=== PATIENT | male | born 1975 | race Two or more races ===

== ENCOUNTER 2020-05-12 06:03 | Outpatient (REF) | payer OTHER, SELFPAY ==
[2020-05-12 07:22] LABS: Alanine Aminotransferase 18 U/L (0-40); Albumin Level 4.4 g/dL (3.5-5.0); Alkaline Phosphatase 129 U/L (39-117); Anion Gap 10 (12-20); Aspartate Amino Transferase 19 U/L (5-37); Bilirubin Direct < 0.2 mg/dL (0.0-0.5); Bilirubin Total 0.5 mg/dL (0.0-1.0); Carbon Dioxide 36 mmol/L (22-29); Chloride 99 mmol/L (96-108); Potassium 4.3 mmol/l (3.3-5.1); Sodium 141 mmol/L (135-145); Total Protein 7.7 g/dL (6.5-8.0)
== END 2020-05-12 06:04 | disposition home or self-care (01) ==
LOC: HO.LAB 06:03
PROVIDERS: PCP Family Medicine; Visit Provider Nurse Practitioner Psychiatric/Mental Health
DX: Z79.899 Other long term (current) drug therapy (principal)
CPT/HCPCS: 80051; 80076

== ENCOUNTER → 2020-05-18 08:57 | Outpatient (BNVA) | payer OTHER, SELFPAY | PROVIDERS: Visit Provider Internal Medicine | DX: F11.99 Opioid use, unspecified with unspecified opioid-induced disorder (principal) | CPT/HCPCS: 80305; 99211 ==

== ENCOUNTER → 2020-07-27 09:23 | Outpatient (BNVA) | payer OTHER, SELFPAY | PROVIDERS: PCP Family Medicine; Visit Provider Internal Medicine ==

== ENCOUNTER 2020-08-17 13:00 | Outpatient (RCR) | payer OTHER, SELFPAY ==
--- NOTE | 2020-04-14 09:04 | P.PNPSP_ITS ---
Subjective Subjective Date of Service: 04/14/20 Reason For Visit: Med management follow up Interim History: Pt presents for follow up. Visit completed via telephone. He reports mother is doing better, and more active--still some STM impairment. he feels increase in Trileptal has improved his mood some, in particular the irritability he was experiencing. Still experiencing severe panic and anxiety anytime he has to leave his home. Medication Compliance: Yes Side effects from medications: No Mental Status Exam Mental Status Exam Level of Consciousness: Awake Patient Behavior: Appropriate Mood Description: Anxious Affect Description: Anxious Patient Cognition Impaired: Yes Speech Pattern: Clear Thought Process: Intact and Rumination Thought Content: positive for Goal Oriented Depressive Symptoms: Increased Anxiety, Difficulty Sleeping and Crying Spells Judgement: Good Assessment & Plan Assessment & Plan (1) Major depressive disorder, recurrent episode, severe: Qualifiers: Psychotic features: without psychotic features Qualified Code(s): F33.2 - Major depressive disorder, recurrent severe without psychotic features Status: Acute Code(s): F33.2 - Major depressive disorder, recurrent severe without psychotic features (2) Post-traumatic stress disorder, chronic: Status: Acute Code(s): F43.12 - Post-traumatic stress disorder, chronic (3) Agoraphobia with panic disorder: Status: Acute Code(s): F40.01 - Agoraphobia with panic disorder Patient educated on: diagnosis and medication risk/benefits Greater than 50% of the session was spent on counseling and/or coordination of care * No change to current regimen * Labs ordered * F/U 1 month, will focus on panic prior to leaving his home Discharge Plan Discharge Attending provider: Lou Barnes Medications: Continued oxcarbazepine 600 mg tablet 1 tab PO BID RF: 0 quetiapine 100 mg tablet 2 tab PO BEDTIME RF: 0 sertraline 100 mg tablet 1.5 tab PO DAILY RF: 0 buprenorphine-naloxone [Suboxone] 8-2 mg film 1 strip sublingual BID RF: 0 Changed clonazepam 0.5 mg tablet See Rx Instructions .ROUTE .COMPLEX Qty: 0 RF: 0 Review of Systems Const Reports difficulty sleeping and Denies malaise Psych Reports anxiety, Reports hopelessness and Reports panic attacks
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
--- NOTE | 2020-06-03 15:48 | P.PNPSO_ITS ---
Subjective Subjective Date of Service: 06/03/20 Reason For Visit: Med management follow up Interim History: Patient reports mood has been stable and sleep has improved. He reports that anxiety associated with having to leave his home is out of control . He reports that he physically shakes while at appointments and he is anxious to leave--providers have taken note of this and been accommodating to patient by ensuring that wait is minimal and appointments are not longer than they need to be. Medication Compliance: Yes Side effects from medications: No Review of Systems Psychiatric: Reports abnormal sleep pattern, Reports anxiety, Reports difficulty concentrating (slightly improving ) and Reports panic attacks Mental Status Exam Mental Status Exam Level of Consciousness: Awake Patient Behavior: Appropriate Mood Description: Anxious Affect Description: Anxious Speech Pattern: Clear Thought Process: Intact and Rumination Thought Content: positive for Intact Depressive Symptoms: Increased Anxiety, Difficulty Sleeping and Crying Spells Judgement: Good Discharge Plan Discharge Attending provider: Lou Barnes Medications: Continued oxcarbazepine 600 mg tablet 1 tab PO BID RF: 0 quetiapine 100 mg tablet 2 tab PO BEDTIME RF: 0 sertraline 100 mg tablet 1.5 tab PO DAILY RF: 0 Discontinued clonazepam 0.5 mg tablet PO RF: 0 No Action buprenorphine-naloxone [Suboxone] 8-2 mg film 2 film sublingual DAILY Qty: 60 RF: 1 clonazepam 0.5 mg tablet See Rx Instructions .ROUTE .COMPLEX 21 Days Qty: 63 RF: 3 clonidine HCl 0.1 mg tablet 0.1 mg PO TID PRN (Reason: anxiety) Qty: 90 RF: 0 Assessment & Plan Assessment & Plan (1) Agoraphobia with panic disorder: Status: Acute Code(s): F40.01 - Agoraphobia with panic disorder Assessment and Plan: * adding clonidine PRN to trial to address sx realted to having to leave the house * no other changes to current regimen (2) Post-traumatic stress disorder, chronic: Status: Acute Code(s): F43.12 - Post-traumatic stress disorder, chronic (3) Major depressive disorder, recurrent episode, severe: Qualifiers: Psychotic features: without psychotic features Qualified Code(s): F33.2 - Major depressive disorder, recurrent severe without psychotic features Status: Acute Code(s): F33.2 - Major depressive disorder, recurrent severe without psychotic features Greater than 50% of the session was spent on counseling and/or coordination of care
--- NOTE | 2020-06-18 09:55 | P.PNPSO_ITS ---
Subjective Subjective Date of Service: 06/20/20 Reason For Visit: Med management follow up Interim History: Patient reports that clonidine has been helpful in managing anxiety and sleep. 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 Review of Systems Constitutional: Reports as per HPI and Reports no additional constitutional complaints Psychiatric: Reports anxiety, Reports difficulty concentrating and Reports panic attacks Mental Status Exam Mental Status Exam Mood Description: Anxious Affect Description: Anxious Speech Pattern: Clear Thought Content: positive for Intact and positive for Preoccupation Depressive Symptoms: Increased Anxiety Judgement: Good Discharge Plan Discharge Attending provider: Lou Barnes Medications: Discontinued clonazepam 0.5 mg tablet PO RF: 0 No Action buprenorphine-naloxone [Suboxone] 8-2 mg film 2 film sublingual DAILY Qty: 60 RF: 1 clonazepam 0.5 mg tablet See Rx Instructions .ROUTE .COMPLEX 21 Days Qty: 63 RF: 3 clonidine HCl 0.1 mg tablet 0.1 mg PO TID PRN (Reason: anxiety) Qty: 90 RF: 3 oxcarbazepine 600 mg tablet 600 mg PO BID Qty: 60 RF: 3 quetiapine 100 mg tablet 200 mg PO BEDTIME Qty: 60 RF: 3 sertraline 100 mg tablet 150 mg PO DAILY Qty: 45 RF: 3 Assessment & Plan Assessment & Plan (1) Agoraphobia with panic disorder: Status: Acute Code(s): F40.01 - Agoraphobia with panic disorder Assessment and Plan: No change to current regimen Refills sent in (2) Post-traumatic stress disorder, chronic: Status: Acute Code(s): F43.12 - Post-traumatic stress disorder, chronic (3) Major depressive disorder, recurrent episode, severe: Qualifiers: Psychotic features: without psychotic features Qualified Code(s): F33.2 - Major depressive disorder, recurrent severe without psychotic features Status: Acute Code(s): F33.2 - Major depressive disorder, recurrent severe without psychotic features Greater than 50% of the session was spent on counseling and/or coordination of care Telehealth Telehealth Location of provider rendering services: practice address Location of patient: address on file Patient Identification confirmed using: Name, : Yes Telehealth method: voice only Patient verbally consented to treatment: Yes Patient verbally consented to billing insurance company: Yes Time spent with patient (mins): 20
--- NOTE | 2020-07-20 08:20 | P.PNPSO_ITS ---
Subjective Subjective Date of Service: 07/15/20 Reason For Visit: Med management follow up Interim History: Chart reviewed, no significant changes since previous visit patient reporting Clonidine effective in managing anxiety when he leaves the house--he is still quite anxious, but he is able to be someplace without racing thoughts to leave overwhelming him Sleep is slowly improving with at least 6 hours 3 nights per week. Has spoke to television operator for new provider--supposed to hear back with appt in the next couple of weeks Medication Compliance: Yes Side effects from medications: No Review of Systems Acute medical concerns: No Medical Review of Systems: unchanged Mental Status Exam Mental Status Exam Mood Description: Anxious Affect Description: Anxious Speech Pattern: Clear Hallucinations: None Delusions: Not Present Thought Process: Rumination Thought Content: positive for Racing and positive for Goal Oriented Depressive Symptoms: Increased Anxiety, Feelings of Guilt and Difficulty Concentrating Judgement: Good Discharge Plan Discharge Attending provider: Lou Barnes Medications: Discontinued clonazepam 0.5 mg tablet PO RF: 0 No Action buprenorphine-naloxone [Suboxone] 8-2 mg film 2 film sublingual DAILY Qty: 60 RF: 1 clonazepam 0.5 mg tablet See Rx Instructions .ROUTE .COMPLEX 21 Days Qty: 63 RF: 3 clonidine HCl 0.1 mg tablet 0.1 mg PO TID PRN (Reason: anxiety) Qty: 90 RF: 3 oxcarbazepine 600 mg tablet 600 mg PO BID Qty: 60 RF: 3 quetiapine 100 mg tablet 200 mg PO BEDTIME Qty: 60 RF: 3 sertraline 100 mg tablet 150 mg PO DAILY Qty: 45 RF: 3 Assessment & Plan Greater than 50% of the session was spent on counseling and/or coordination of care Telehealth Telehealth Location of provider rendering services: practice address Location of patient: address on file Patient Identification confirmed using: Name, : Yes Telehealth method: voice only Patient verbally consented to treatment: Yes Patient verbally consented to billing insurance company: Yes Time spent with patient (mins): 18
== END 2020-09-06 23:55 | disposition home or self-care (01) ==
LOC: HO.PAOS 13:00
PROVIDERS: Visit Provider Nurse Practitioner Psychiatric/Mental Health
DX: F33.2 Major depressive disorder, recurrent severe without psychotic features (principal); F40.01 Agoraphobia with panic disorder; F43.12 Post-traumatic stress disorder, chronic; Z79.899 Other long term (current) drug therapy
CPT/HCPCS: 99213

== ENCOUNTER → 2020-09-17 08:44 | Outpatient (BNVA) | payer OTHER, SELFPAY | PROVIDERS: PCP Family Medicine; Visit Provider Internal Medicine | DX: F40.01 Agoraphobia with panic disorder (principal); F33.2 Major depressive disorder, recurrent severe without psychotic features; F43.12 Post-traumatic stress disorder, chronic; F11.21 Opioid dependence, in remission; Z79.899 Other long term (current) drug therapy | CPT/HCPCS: 80305; 99212 ==

== ENCOUNTER → 2020-11-12 08:53 | Outpatient (BNVA) | payer OTHER, SELFPAY | PROVIDERS: Visit Provider Internal Medicine | DX: F11.21 Opioid dependence, in remission (principal); F40.01 Agoraphobia with panic disorder; F43.12 Post-traumatic stress disorder, chronic; F33.2 Major depressive disorder, recurrent severe without psychotic features; Z51.81 Encounter for therapeutic drug level monitoring | CPT/HCPCS: 80305; 99212 ==

== ENCOUNTER → 2020-11-19 08:57 | Outpatient (BNVA) | payer OTHER, SELFPAY | PROVIDERS: Visit Provider Nurse Practitioner Psychiatric/Mental Health | DX: Z51.81 Encounter for therapeutic drug level monitoring (principal) ==

== ENCOUNTER 2020-11-26 06:03 | Outpatient (REF) | payer OTHER, SELFPAY ==
[2020-11-26 07:41] LABS: Alanine Aminotransferase 32 U/L (0-40); Albumin Level 4.4 g/dL (3.5-5.0); Alkaline Phosphatase 146 U/L (39-117); Anion Gap 13 (12-20); Aspartate Amino Transferase 18 U/L (5-37); Bilirubin Total < 0.2 mg/dL (0.0-1.0); Blood Urea Nitrogen 19 mg/dL (9-16); Calcium 8.8 mg/dL (8.4-10.2); Carbon Dioxide 28 mmol/L (22-29); Chloride 104 mmol/L (96-108); Cholesterol 264 mg/dL; Estimated Glomerular Filt Rate > 60; Glucose Fasting 111 mg/dL (60-99); HDL Cholesterol 28 mg/dL; Potassium 4.3 mmol/L (3.3-5.1); Sodium 141 mmol/L (135-145); Total Protein 7.7 g/dL (6.5-8.0); Triglycerides 708 mg/dL
[2020-11-26 08:03] LABS: TSH reflex Free T4 3.87 uIU/mL (0.32-4.0)
== END 2020-11-26 06:04 | disposition home or self-care (01) ==
LOC: HO.LAB 06:03
PROVIDERS: Absent Provider Nurse Practitioner Psychiatric/Mental Health; PCP Family Medicine; Visit Provider Family Medicine
DX: Z00.00 Encounter for general adult medical examination without abnormal findings (principal); E66.9 Obesity, unspecified; Z79.899 Other long term (current) drug therapy
CPT/HCPCS: 36415; 80053; 80061; 84443

== ENCOUNTER → 2020-12-10 15:33 | Outpatient (BNVA) | payer OTHER, SELFPAY | PROVIDERS: Visit Provider Nurse Practitioner Psychiatric/Mental Health | DX: Z51.81 Encounter for therapeutic drug level monitoring (principal) ==

== ENCOUNTER → 2021-01-14 09:12 | Outpatient (BNVA) | payer OTHER, SELFPAY | PROVIDERS: Visit Provider Nurse Practitioner Psychiatric/Mental Health ==

== ENCOUNTER → 2021-02-11 09:05 | Outpatient (BNVA) | payer OTHER, SELFPAY | PROVIDERS: Visit Provider Nurse Practitioner Psychiatric/Mental Health ==

== ENCOUNTER → 2021-03-11 09:13 | Outpatient (BNVA) | payer OTHER, SELFPAY | PROVIDERS: Visit Provider Nurse Practitioner Psychiatric/Mental Health ==

== ENCOUNTER → 2021-05-06 09:09 | Outpatient (BNVA) | payer OTHER, SELFPAY | PROVIDERS: Visit Provider Nurse Practitioner Psychiatric/Mental Health ==

== ENCOUNTER → 2021-07-08 09:27 | Outpatient (BNVA) | payer OTHER, SELFPAY | PROVIDERS: Visit Provider Nurse Practitioner Psychiatric/Mental Health ==

== ENCOUNTER → 2021-08-05 09:08 | Outpatient (BNVA) | payer OTHER, SELFPAY | PROVIDERS: Visit Provider Nurse Practitioner Psychiatric/Mental Health ==

== ENCOUNTER → 2021-08-26 09:42 | Outpatient (BNVA) | payer MEDICARE, OTHER, SELFPAY | PROVIDERS: Visit Provider Nurse Practitioner Psychiatric/Mental Health | DX: F11.20 Opioid dependence, uncomplicated (principal); F40.01 Agoraphobia with panic disorder; F33.2 Major depressive disorder, recurrent severe without psychotic features | CPT/HCPCS: 80305; 99212 ==

== ENCOUNTER 2021-08-30 05:59 | Outpatient (REF) | payer OTHER, SELFPAY ==
[2021-08-30 06:14] LABS: MANUAL DIFF FLAG NO
[2021-08-30 06:53] LABS: Basophils Absolute Auto 0.1 X10*3/uL (0.0-0.2); Basophils Percent Auto 1.4 % (0-2); Eosinophils Absolute Auto 0.2 X10*3/uL (0.0-0.4); Eosinophils Percent Auto 2.4 % (0-4); Hematocrit 41.7 % (42.0-52.0); Imm Gran Abs Auto 0.02 X10*3/uL (0.00-0.03); Imm Gran Pct Auto 0.3 % (0.0-0.4); Lymphocytes Absolute Auto 2.5 X10*3/uL (1.2-4.9); Lymphocytes Percent Auto 37.7 % (20-40); Mean Corpuscular HGB Conc 33.6 g/dl (31.0-36.0); Mean Corpuscular Hemoglobin 29.9 pg (27.0-33.0); Mean Corpuscular Volume 88.9 fL (80.0-98.0); Mean Platelet Volume 10.2 fL (9.4-12.4); Monocytes Absolute Auto 0.5 X10*3/uL (0.1-1.2); Monocytes Percent Auto 8.2 % (2-11); Neutrophils Absolute Auto 3.3 x10*3/uL (2.0-8.3); Platelet Count 228 X10*3/uL (160-400); Red Blood Count 4.69 X10*6/uL (4.60-5.80); Red Cell Distribution Width 12.9 % (11.0-16.0); White Blood Count 6.6 X10*3/uL (4.8-10.8)
[2021-08-30 07:09] LABS: Alanine Aminotransferase 14 U/L (0-40); Albumin Level 4.2 g/dL (3.5-5.0); Alkaline Phosphatase 123 U/L (39-117); Anion Gap 12 (12-20); Aspartate Amino Transferase 16 U/L (5-37); Bilirubin Total 0.2 mg/dL (0.0-1.0); Blood Urea Nitrogen 11 mg/dL (9-16); Calcium 9.2 mg/dL (8.4-10.2); Carbon Dioxide 31 mmol/L (22-29); Chloride 104 mmol/L (96-108); Cholesterol 231 mg/dL; Estimated Glomerular Filt Rate > 60; Glucose Fasting 94 mg/dL (60-99); HDL Cholesterol 26 mg/dL; Potassium 4.2 mmol/L (3.3-5.1); Sodium 143 mmol/L (135-145); Total Protein 7.9 g/dL (6.5-8.0); Triglycerides 968 mg/dL
[2021-08-30 07:24] LABS: Estimated Average Glucose 114 mg/dL; Hemoglobin A1c % 5.6 %
== END 2021-08-30 06:00 | disposition home or self-care (01) ==
LOC: HO.LAB 05:59
PROVIDERS: PCP Family Medicine; Visit Provider Nurse Practitioner Psychiatric/Mental Health
DX: Z79.899 Other long term (current) drug therapy (principal)
CPT/HCPCS: 36415; 80053; 80061; 83036; 84443; 85025

== ENCOUNTER → 2021-09-09 16:19 | Outpatient (BNVA) | payer OTHER, SELFPAY | PROVIDERS: Visit Provider Nurse Practitioner Psychiatric/Mental Health ==

== ENCOUNTER → 2021-10-28 09:46 | Outpatient (BNVA) | payer MEDICARE, OTHER, SELFPAY | PROVIDERS: Visit Provider Nurse Practitioner Psychiatric/Mental Health | DX: F11.20 Opioid dependence, uncomplicated (principal); F40.01 Agoraphobia with panic disorder; F33.2 Major depressive disorder, recurrent severe without psychotic features | CPT/HCPCS: 99212 ==

== ENCOUNTER → 2021-12-02 09:53 | Outpatient (BNVA) | payer OTHER, SELFPAY | PROVIDERS: Visit Provider Nurse Practitioner Psychiatric/Mental Health | DX: Z13.89 Encounter for screening for other disorder (principal) ==

== ENCOUNTER → 2022-01-04 09:47 | Outpatient (BNVA) | payer OTHER, SELFPAY | PROVIDERS: PCP Family Medicine; Visit Provider Nurse Practitioner Psychiatric/Mental Health | DX: Z51.81 Encounter for therapeutic drug level monitoring (principal); F11.20 Opioid dependence, uncomplicated | CPT/HCPCS: 99211 ==

== ENCOUNTER 2022-01-11 16:48 | Emergency (ER) | payer MEDICARE, OTHER, SELFPAY ==
--- NOTE | 2022-01-11 16:54 | ED.PSYCH ---
HPI - Psych General Chief Complaint: Overdose Stated Complaint: Substance abuse? Time Seen by Provider: 01/11/22 16:54 Source: patient Mode of arrival: EMS Limitations: no limitations History of Present Illness HPI Narrative: took a clonazepam and 2 bags of heroin - snorted prior to arrival no narcan given MD complaint: substance abuse Onset (ago): minute(s) (just prior to arrival) Duration: constant History of same: Yes Relieving factors: none Exacerbating factors: drug use Context: recent drug abuse Associated psychiatric symptoms: none Associated symptoms: denies other symptoms Treatments prior to arrival: none Related Data Previous Rx's Medication Instructions Recorded clonidine HCl 0.1 mg tablet 0.1 mg PO BID #60 tabs 11/08/21 clonazepam 0.5 mg tablet 0.5 mg PO .COMPLEX #56 tabs 11/11/21 sertraline 100 mg tablet 150 mg PO DAILY #45 tabs 12/13/21 buprenorphine 2 mg-naloxone 0.5 mg 1 film buccal BID #4 ea 01/04/22 sublingual film (Suboxone) oxcarbazepine 300 mg tablet 1,200 mg PO DAILY #120 tabs 01/04/22 quetiapine 50 mg tablet (Seroquel) 50 mg PO BEDTIME #30 tabs 01/04/22 buprenorphine 8 mg-naloxone 2 mg 2 film sublingual DAILY #14 ea 01/06/22 sublingual film (Suboxone) clonidine HCl 0.2 mg tablet 0.2 mg PO BEDTIME #30 tabs 01/06/22 Allergies Allergy/AdvReac Type Severity Reaction Status Date / Time No Known Allergies Allergy Verified 08/26/21 09:49 [No Known Allergies*] Review of Systems Review of Systems: Constitutional : No Fever, No Chills ENT/Mouth : No Ear Pain, No Nasal Congestion, No sore throat Eyes: No Eye Pain, No Swelling, No Redness Cardiovascular : No Chest Pain, No SOB Respiratory : No Cough, No Sputum, No Dyspnea Gastrointestinal : No Nausea, No Vomiting, No Diarrhea, No Hematochezia, No Melena Genitourinary : No Dysuria, No Urinary Frequency, No Hematuria Musculoskeletal : No Myalgias Skin : No Skin Lesions, No rash Neuro : No Weakness, No Numbness, No Paresthesias, No Dizziness, No Headache Psych : no Anxiety, no Depression, no SI/HI All other systems reviewed and are negative [facility] Past Medical History Attestation statement: The following information was validated with the patient. Medical History Other snf (current) drug therapy Surgical History (Updated 08/26/21 @ 09:51 by Lorraine Santamaria CMA) Surgical procedure on lower extremity within past 6 months Family History Family History (Updated 08/26/21 @ 09:51 by Lorraine Santamaria CMA) Mother Mental confusion Other Seizures Social History Social History Household Members: Family Housing: House Alcohol intake: former Patient Tobacco Use Status: Current everyday Tobacco user Cigarettes Per Day: 5 Years Smoked: 25 Advance Directives: No Advance Directives Information Provided: No Physical Exam Vital Signs: Vital Signs: Last Vital Signs Temp 98.1 F 01/11/22 17:05 Pulse 79 01/11/22 17:05 Resp 12 01/11/22 17:05 BP 108/65 01/11/22 17:05 Pulse Ox 98 01/11/22 17:05 O2 Del Method 01/11/22 17:05 BMI result Body Mass Index 30.6 Appearance: Alert. Oriented X3. No acute distress. Slightly somnolent Eyes: Pupils equal, round and reactive to light. ENT: Pharynx normal. Neck: Normal inspection. Neck supple. CVS: Normal heart rate and rhythm. Pulses normal. Respiratory: No respiratory distress. Breath sounds normal. Abdomen: Soft and non-tender. Skin: Skin warm and dry. Normal skin color. Normal skin turgor. Extremities: No lower extremity edema. Neuro: Oriented X 3. No motor deficit. No sensory deficit. CN2-12 intact Course Course Course Narrative: obs for 2 hours no need for narcan stable for DC declines SUDE evaluation MDM - Psych MDM Narrative Medical decision making narrative: 46 yo male with hx of substance abuse was using today no need for narcan - patient mixed clonazepam and snorted 2 bags of heroin. Plans to go to detox on has no SI. Does not want to go to detox now and doesn't want to talk to anyone today. Will monitor and reassess. Discharge Plan Discharge Clinical Impression: Polysubstance abuse Patient Disposition: Home, Self-Care Instructions: Polysubstance Abuse (ED) Additional Instructions: return to ED for any worsening symptoms or concerns please carry narcan with you at all times Prescriptions: No Action clonidine HCl 0.1 mg tablet 0.1 mg PO BID Qty: 60 3RF Rx Instructions: 1 tab in AM and 1 tab in the afternoon (this is in addition to 0.2mg at HS) clonazepam 0.5 mg tablet 0.5 mg PO .COMPLEX Qty: 56 4RF Rx Instructions: 0.5 mg PO; 1 tab in AM, 2 in the afternoon and 1 tab at bedtime sertraline 100 mg tablet 150 mg PO DAILY Qty: 45 3RF buprenorphine-naloxone [Suboxone] 2-0.5 mg film 1 film buccal BID Qty: 4 0RF Rx Instructions: place 1 strip/tab under (each) side of tongue quetiapine [Seroquel] 50 mg tablet 50 mg PO BEDTIME Qty: 30 1RF oxcarbazepine 300 mg tablet 1,200 mg PO DAILY Qty: 120 0RF Rx Instructions: two tabs in the AM and 2 tabs at bedtime ( total of 1200mg daily) clonidine HCl 0.2 mg tablet 0.2 mg PO BEDTIME Qty: 30 3RF buprenorphine-naloxone [Suboxone] 8-2 mg film 2 film sublingual DAILY Qty: 14 0RF Rx Instructions: place 1 strip/tab under (each) side of tongue
[2022-01-11 16:55] VITALS: BP 120/72; PULSE 85; O2SAT 96
[2022-01-11 17:05] VITALS: BP 108/65; PULSE 79; RESP 12; TEMP 36.7; O2SAT 98; BMI 30.6
[2022-01-11] MEDS: Naloxone HCl Nasal TAKE HOME 4 MG SPRAY NOSTRILALT (19:07)
== END 2022-01-11 19:16 | disposition home or self-care (01) ==
PROVIDERS: Emergency Provider Emergency Medicine; PCP Family Medicine
DX: T40.1X1A Poisoning by heroin, accidental (unintentional), initial encounter (principal); Y92.9 Unspecified place or not applicable; F11.10 Opioid abuse, uncomplicated; F17.210 Nicotine dependence, cigarettes, uncomplicated; Z79.899 Other long term (current) drug therapy; Z71.6 Tobacco abuse counseling
CPT/HCPCS: 99283

== ENCOUNTER → 2022-01-13 09:12 | Outpatient (BNVA) | payer MEDICARE, OTHER, SELFPAY | PROVIDERS: PCP Family Medicine; Visit Provider Nurse Practitioner Psychiatric/Mental Health | DX: F11.20 Opioid dependence, uncomplicated (principal) | CPT/HCPCS: 80305; 99212 ==

== ENCOUNTER → 2022-01-27 10:40 | Outpatient (BNVA) | payer MEDICARE, OTHER, SELFPAY | PROVIDERS: PCP Family Medicine; Visit Provider Nurse Practitioner Psychiatric/Mental Health | DX: F11.20 Opioid dependence, uncomplicated (principal); F40.01 Agoraphobia with panic disorder; F43.12 Post-traumatic stress disorder, chronic; Z79.899 Other long term (current) drug therapy | CPT/HCPCS: 80305; 99212 ==

== ENCOUNTER 2022-02-18 06:24 | Outpatient (REF) | payer OTHER, SELFPAY ==
[2022-02-18 07:21] LABS: Alanine Aminotransferase 11 U/L (0-40); Albumin Level 4.5 g/dL (3.5-5.0); Alkaline Phosphatase 89 U/L (39-117); Anion Gap 16 (12-20); Aspartate Amino Transferase 17 U/L (5-37); Bilirubin Total 0.5 mg/dL (0.0-1.0); Blood Urea Nitrogen 25 mg/dL (9-16); Calcium 9.2 mg/dL (8.4-10.2); Carbon Dioxide 27 mmol/L (22-29); Chloride 105 mmol/L (96-108); Estimated Glomerular Filt Rate > 60; Glucose Random 105 mg/dL (60-115); Potassium 5.2 mmol/L (3.3-5.1); Sodium 143 mmol/L (135-145); Total Protein 7.2 g/dL (6.5-8.0)
== END 2022-02-18 06:25 | disposition home or self-care (01) ==
LOC: HO.LAB 06:24
PROVIDERS: PCP Family Medicine; Visit Provider Nurse Practitioner Psychiatric/Mental Health
DX: Z79.899 Other long term (current) drug therapy (principal)
CPT/HCPCS: 36415; 80053

== ENCOUNTER → 2022-03-23 09:11 | Outpatient (BNVA) | payer MEDICARE, OTHER, SELFPAY ==
--- NOTE | 2022-05-09 16:51 | P.EN_ITS ---
Event Note Date of Service: 05/09/22 Event Note: Received phone call today from mother of patient. She reports that he is sleeping all day/night, and is in a bad mood . Mother reports that he has had intermittent SI, none today. She reports that when she spoke with him earlier he told her ?leave me alone ?. She is concerned that he may need to be seen. When asked if she felt safe, she stated yes. This policy writer sales suggested that if she do not feel safe that she should call 911 to have him brought into the hospital for evaluation. Also that if she felt he were trying to self-harm, she should call 911. She stated that she felt safe, and that she wants him to be seeing tomorrow if possible. She was agreeable that if at any time she feels he is not safe or she is not safe, she will call 911. Program RN has been notified, asked to call patient for appointment tomorrow morning.
== END ==
PROVIDERS: PCP Family Medicine; Visit Provider Nurse Practitioner Psychiatric/Mental Health
DX: F11.20 Opioid dependence, uncomplicated (principal); F43.12 Post-traumatic stress disorder, chronic; F40.01 Agoraphobia with panic disorder; Z79.899 Other long term (current) drug therapy
CPT/HCPCS: 80305; 99212; 99499

== ENCOUNTER → 2022-05-11 09:23 | Outpatient (BNVA) | payer MEDICARE, OTHER, SELFPAY | PROVIDERS: PCP Family Medicine; Visit Provider Nurse Practitioner Psychiatric/Mental Health | DX: Z51.81 Encounter for therapeutic drug level monitoring (principal); F11.20 Opioid dependence, uncomplicated; F43.12 Post-traumatic stress disorder, chronic | CPT/HCPCS: 80305; 99212 ==

== ENCOUNTER 2022-05-12 06:10 | Outpatient (REF) | payer OTHER, SELFPAY ==
[2022-05-12 06:27] LABS: MANUAL DIFF FLAG NO
[2022-05-12 06:36] LABS: Ammonia 32 umol/L (13-55); Basophils Absolute Auto 0.1 X10*3/uL (0.0-0.2); Basophils Percent Auto 1.9 % (0-2); Eosinophils Absolute Auto 0.2 X10*3/uL (0.0-0.4); Eosinophils Percent Auto 2.8 % (0-4); Hematocrit 43.2 % (42.0-52.0); Imm Gran Abs Auto 0.01 X10*3/uL (0.00-0.03); Imm Gran Pct Auto 0.2 % (0.0-0.4); Lymphocytes Absolute Auto 1.9 X10*3/uL (1.2-4.9); Lymphocytes Percent Auto 36.2 % (20-40); Mean Corpuscular HGB Conc 32.4 g/dl (31.0-36.0); Mean Corpuscular Hemoglobin 29.6 pg (27.0-33.0); Mean Corpuscular Volume 91.3 fL (80.0-98.0); Mean Platelet Volume 9.9 fL (9.4-12.4); Monocytes Absolute Auto 0.6 X10*3/uL (0.1-1.2); Monocytes Percent Auto 10.5 % (2-11); Neutrophils Absolute Auto 2.6 x10*3/uL (2.0-8.3); Neutrophils Percent Auto 48.4 % (45-73); Platelet Count 193 X10*3/uL (160-400); Red Blood Count 4.73 X10*6/uL (4.60-5.80); White Blood Count 5.3 X10*3/uL (4.8-10.8)
[2022-05-12 06:47] LABS: Alanine Aminotransferase 8 U/L (0-40); Albumin Level 4.2 g/dL (3.5-5.0); Alkaline Phosphatase 75 U/L (39-117); Anion Gap 15 (12-20); Aspartate Amino Transferase 14 U/L (5-37); Bilirubin Total 0.2 mg/dL (0.0-1.0); Blood Urea Nitrogen 21 mg/dL (9-16); Calcium 9.2 mg/dL (8.4-10.2); Carbon Dioxide 27 mmol/L (22-29); Chloride 107 mmol/L (96-108); Estimated Glomerular Filt Rate > 60; Glucose Random 121 mg/dL (60-115); Magnesium 2.1 mg/dL (1.6-2.6); Potassium 4.3 mmol/L (3.3-5.1); Sodium 145 mmol/L (135-145)
[2022-05-12 10:14] LABS: Folate 15.4 ng/mL (> or = 4.0); Vitamin B12 619 pg/mL (200-900)
[2022-05-19 15:01] LABS: Vitamin D 25-OH, D2 <4 ng/mL; Vitamin D 25-OH, D3 34 ng/mL; Vitamin D 25-OH, Total 34 ng/mL (30-100)
== END 2022-05-12 06:11 | disposition home or self-care (01) ==
LOC: HO.LAB 06:10
PROVIDERS: PCP Family Medicine; Visit Provider Nurse Practitioner Psychiatric/Mental Health
DX: Z79.899 Other long term (current) drug therapy (principal)
CPT/HCPCS: 36415; 80053; 82140; 82306; 82607; 82746; 83735; 85025

== ENCOUNTER → 2022-06-10 09:03 | Outpatient (BNVA) | payer OTHER, SELFPAY | PROVIDERS: PCP Family Medicine; Visit Provider Nurse Practitioner Psychiatric/Mental Health | DX: Z51.81 Encounter for therapeutic drug level monitoring (principal); F11.20 Opioid dependence, uncomplicated; F40.01 Agoraphobia with panic disorder | CPT/HCPCS: 80305; 99212 ==

== ENCOUNTER → 2022-07-15 08:51 | Outpatient (BNVA) | payer OTHER, SELFPAY | PROVIDERS: PCP Family Medicine; Visit Provider Nurse Practitioner Psychiatric/Mental Health | DX: Z51.81 Encounter for therapeutic drug level monitoring (principal); F43.12 Post-traumatic stress disorder, chronic; F11.20 Opioid dependence, uncomplicated | CPT/HCPCS: 99212 ==

== ENCOUNTER → 2022-08-12 08:56 | Outpatient (BNVA) | payer OTHER, SELFPAY | PROVIDERS: PCP Family Medicine; Visit Provider Nurse Practitioner Psychiatric/Mental Health | DX: F11.20 Opioid dependence, uncomplicated (principal); F40.01 Agoraphobia with panic disorder | CPT/HCPCS: 99212 ==

== ENCOUNTER 2022-08-19 09:01 | Outpatient (REF) | payer MEDICARE, MEDICAID, OTHER, SELFPAY ==
[2022-08-19 12:21] LABS: Alanine Aminotransferase 27 U/L (0-40); Albumin Level 4.5 g/dL (3.5-5.0); Alkaline Phosphatase 85 U/L (39-117); Anion Gap 13 (12-20); Aspartate Amino Transferase 21 U/L (5-37); Bilirubin Total 0.3 mg/dL (0.0-1.0); Blood Urea Nitrogen 21 mg/dL (9-16); Calcium 9.1 mg/dL (8.4-10.2); Carbon Dioxide 29 mmol/L (22-29); Chloride 104 mmol/L (96-108); Cholesterol 205 mg/dL; Estimated Glomerular Filt Rate > 60; Glucose Fasting 115 mg/dL (60-99); HDL Cholesterol 34 mg/dL; LDL Cholesterol Calculated 106 mg/dl; Potassium 4.5 mmol/L (3.3-5.1); Prostate Specific Antigen Scr 0.18 ng/mL (<0.05-4.0); Sodium 141 mmol/L (135-145); TSH reflex Free T4 1.64 uIU/mL (0.32-4.0); Total Protein 7.1 g/dL (6.5-8.0); Triglycerides 329 mg/dL
== END 2022-08-19 09:02 | disposition home or self-care (01) ==
LOC: HO.WFDLDS 09:01
PROVIDERS: Visit Provider Family Medicine
DX: Z00.00 Encounter for general adult medical examination without abnormal findings (principal); Z12.5 Encounter for screening for malignant neoplasm of prostate
CPT/HCPCS: 36415; 80053; 80061; 84153; 84443

== ENCOUNTER → 2022-09-09 08:44 | Outpatient (BNVA) | payer OTHER, SELFPAY | PROVIDERS: PCP Family Medicine; Visit Provider Nurse Practitioner Psychiatric/Mental Health | DX: Z51.81 Encounter for therapeutic drug level monitoring (principal); F11.20 Opioid dependence, uncomplicated | CPT/HCPCS: 80305; 99212 ==

== ENCOUNTER → 2022-10-07 08:48 | Outpatient (BNVA) | payer OTHER, SELFPAY | PROVIDERS: PCP Family Medicine; Visit Provider Nurse Practitioner Psychiatric/Mental Health ==

== ENCOUNTER → 2022-10-27 09:01 | Outpatient (BNVA) | payer OTHER, SELFPAY | PROVIDERS: PCP Family Medicine; Visit Provider Nurse Practitioner Psychiatric/Mental Health ==

== ENCOUNTER → 2022-12-22 09:06 | Outpatient (BNVA) | payer MEDICARE, MEDICAID, SELFPAY | PROVIDERS: PCP Family Medicine; Visit Provider Nurse Practitioner Psychiatric/Mental Health | DX: F11.20 Opioid dependence, uncomplicated (principal); F33.2 Major depressive disorder, recurrent severe without psychotic features | CPT/HCPCS: 99212 ==

== ENCOUNTER 2023-05-04 10:07 | Outpatient (AMB) | payer MEDICARE, MEDICAID, SELFPAY ==
--- NOTE | 2023-05-04 10:08 | MHC.OFFVIS ---
Intake Vital Signs 05/04/23 10:13 BP 140/72 H Blood Pressure Location Lt radial Position Sitting Pulse 74 Pulse Source Pulse Oximeter Pulse Oximetry (%) 98 Oxygen Delivery Method Room Air Comment nervous today Intake Visit Reasons: MAT Restart Intake Note: the patient presents for a Mat re-start [employer] Chief Required: No Allergies No Known Allergies [No Known Allergies*] Allergy (Verified 05/04/23 10:14) Medication List - Last Reconciled 05/04/23 by Lou Barnes CNP buprenorphine-naloxone 8-2 mg (Suboxone) 1 film sublingual BID clonidine HCl 0.1 mg PO BID fenofibrate 54 mg PO DAILY 90 days meloxicam 15 mg PO DAILY 30 days Do you need a note to return to daycare/school/sports/work: No HPI MAT Restart HPI Details Patient presents to re-establish care Currently using a bundle daily. Denies cocaine use Has not taken suboxone in quite some time --not taking any medications at this time No acute medical issues or changes Denies overdose or substance use related hospitalizations Mother presenta at end of visit when patient disclosed that he has been using PFSH Medical History (Updated 09/12/22 @ 10:14 by Ameya Bills) Opioid use disorder, severe, in sustained remission, on maintenance therapy Other [facility] (current) drug therapy Surgical History (Updated 08/26/21 @ 09:51 by Lorraine Santamaria CMA) Surgical procedure on lower extremity within past 6 months Family History (Updated 08/26/21 @ 09:51 by Lorraine Santamaria CMA) Mother Mental confusion Other Seizures Social History Household Members: Family Housing: House Alcohol intake: former Patient Tobacco Use Status: Current everyday Tobacco user Cigarettes Per Day: 5 Years Smoked: 25 e-Cigarette/Vaping Use: Never Used service: No Current occupational status: disabled Hearing needs: No Review of Systems Const Reports as per HPI, Reports body aches, Reports chills, Reports difficulty sleeping, Reports malaise and Reports poor appetite Physical Exam Vital Signs: Last Vital Signs Pulse 74 05/04/23 10:13 BP 140/72 H 05/04/23 10:13 Pulse Ox 98 05/04/23 10:13 Oxygen Delivery Method Room Air 05/04/23 10:13 Const General: cooperative, anxious and diaphoretic Assessment & Plan Assessment & Plan (1) Opioid use disorder: Code(s): F11.90 - Opioid use, unspecified, uncomplicated Plan: patient to restart suboxone comfort medications ordered follow up one week Medications: New trazodone 100 mg PO BEDTIME 10 tabs 0RF ondansetron HCl 4 mg PO Q6-8H PRN 14 tabs 0RF nausea and vomiting Changed From clonidine HCl 1 tab in AM and 1 tab in the afternoon (this is in addition to 0.2mg at HS) 0.1 mg PO BID 60 tabs 3RF To clonidine HCl 0.1 mg PO TID 30 tabs 0RF Coding Level of Care Code Est Pt Level 4 (81348) Diagnoses Opioid use disorder F11.90
[2023-05-04 10:13] VITALS: BP 140/72; PULSE 74; O2SAT 98
== END 2023-05-04 10:52 | disposition home or self-care (01) ==
PROVIDERS: PCP Family Medicine; Visit Provider Nurse Practitioner Psychiatric/Mental Health
DX: F11.90 Opioid use, unspecified, uncomplicated (principal)
CPT/HCPCS: 99214

== ENCOUNTER → 2023-05-04 10:07 | Outpatient (BNVA) | payer MEDICARE, MEDICAID, SELFPAY | PROVIDERS: PCP Family Medicine; Visit Provider Nurse Practitioner Psychiatric/Mental Health | DX: F11.21 Opioid dependence, in remission (principal); F17.210 Nicotine dependence, cigarettes, uncomplicated; Z51.81 Encounter for therapeutic drug level monitoring; Z79.899 Other long term (current) drug therapy | CPT/HCPCS: 99212 ==

== ENCOUNTER 2023-05-12 09:00 | Outpatient (AMB) | payer MEDICARE, MEDICAID, SELFPAY ==
[2023-05-12 09:12] VITALS: BP 116/68; PULSE 88; O2SAT 95
--- NOTE | 2023-05-12 09:12 | A.OFFVIS_ITS ---
Intake Vital Signs 05/12/23 09:12 BP 116/68 Blood Pressure Location Rt brachial Position Sitting Pulse 88 Pulse Source Pulse Oximeter Pulse Oximetry (%) 95 Oxygen Delivery Method Room Air Intake Visit Reasons: MAT Visit Allergies No Known Allergies [No Known Allergies*] Allergy (Verified 05/04/23 10:14) HPI MAT Visit HPI Details Patient presents for follow up Restarted suboxone --back up to 8mg BID Feeling better overall--some dizziness, but states this is not new. Continues to experience anxiety---which is his baseline, however since he has not been taking his previous psychiatric medications for some time, sx have increased. [facility] Medical History (Updated 09/12/22 @ 10:14 by Ameya Bills) Opioid use disorder, severe, in sustained remission, on maintenance therapy Other correction (current) drug therapy Surgical History (Updated 08/26/21 @ 09:51 by Lorraine Santamaria CMA) Surgical procedure on lower extremity within past 6 months Family History (Updated 08/26/21 @ 09:51 by Lorraine Santamaria CMA) Mother Mental confusion Other Seizures Social History Household Members: Family Housing: House Alcohol intake: former Patient Tobacco Use Status: Current everyday Tobacco user Cigarettes Per Day: 5 Years Smoked: 25 e-Cigarette/Vaping Use: Never Used service: No Current occupational status: disabled Hearing needs: No Review of Systems Const Reports as per HPI and Reports difficulty sleeping Physical Exam Vital Signs: Last Vital Signs Pulse 88 05/12/23 09:12 BP 116/68 05/12/23 09:12 Pulse Ox 95 05/12/23 09:12 Oxygen Delivery Method Room Air 05/12/23 09:12 Const General: cooperative and anxious Nutritional Appearance: overweight Orientation/consciousness: patient oriented x3 Limitations: no limitations Neuro General: patient oriented x3 Psych Appearance: well kempt Speech and movement: Clear speech present Affect: Anxious affect present Attitude: cooperative Thought process: Normal thought process present Thought content: Normal thought content present Insight: Fair insight present (Psych) Judgement: Fair judgement present (Psych) Assessment & Plan Assessment & Plan (1) Opioid use disorder: Code(s): F11.90 - Opioid use, unspecified, uncomplicated Plan: * continue suboxone 8mg BID * risk reduction discussion * follow up 2 weeks via telehealth (2) Major depressive disorder, recurrent episode, severe: Code(s): F33.2 - Major depressive disorder, recurrent severe without psychotic features Qualifiers: Psychotic features: without psychotic features Qualified Code(s): F33.2 - Major depressive disorder, recurrent severe without psychotic features Plan: * clonidine 0.1mg TID * seroquel 50-100mg QHS Medications: New quetiapine (Seroquel) take 1-2 tabs at bedtime 50 mg PO BEDTIME 30 tabs 0RF Refilled buprenorphine-naloxone 8-2 mg (Suboxone) 1 film sublingual BID 60 ea 0RF clonidine HCl 0.1 mg PO TID 90 tabs 0RF Coding Level of Care Code Est Pt Level 4 (30863) Diagnoses Opioid use disorder F11.90 Severe episode of recurrent major depressive disorder, without psychotic features F33.2 Psychotic features: without psychotic features
== END 2023-05-12 09:35 | disposition home or self-care (01) ==
PROVIDERS: PCP Family Medicine; Visit Provider Nurse Practitioner Psychiatric/Mental Health
DX: F11.90 Opioid use, unspecified, uncomplicated (principal); F33.2 Major depressive disorder, recurrent severe without psychotic features
CPT/HCPCS: 99214

== ENCOUNTER → 2023-05-12 09:00 | Outpatient (BNVA) | payer MEDICARE, MEDICAID, SELFPAY | PROVIDERS: PCP Family Medicine; Visit Provider Nurse Practitioner Psychiatric/Mental Health | DX: Z51.81 Encounter for therapeutic drug level monitoring (principal); F11.20 Opioid dependence, uncomplicated; F33.2 Major depressive disorder, recurrent severe without psychotic features | CPT/HCPCS: 99212 ==

== ENCOUNTER 2023-05-19 08:56 | Outpatient (AMB) | payer MEDICARE, MEDICAID, SELFPAY ==
--- NOTE | 2023-05-19 08:56 | MHC.AM.SUB ---
Intake Intake Visit Reasons: MAT Visit Allergies No Known Allergies [No Known Allergies*] Allergy (Verified 05/04/23 10:14) HPI MAT Visit HPI Details Patient presents for follow up via telehealth Still experiencing withdrawal sx. teary eyes, not feeling well overall --does not wish to increase dose Reporting anxiety sx worsening. Patient inquired if Clonazepam was going to be restarted, this remote mortgage underwriter educated patient regarding increased risks given recent recurrence and since patient has been off of medication for several months now, medication would not be reinstated. Discussed seroquel during the day to assist with agitation and anxiety sx as they present, patient agreeable. Discussed accessing additional recovery supports as patient does not have any supports in place aside from long time therapist.Patient states he wants to wait until he starts feeling better [facility] Medical History (Updated 09/12/22 @ 10:14 by Ameya Bills) Opioid use disorder, severe, in sustained remission, on maintenance therapy Other intermodal owner operator truck driver (current) drug therapy Surgical History (Updated 08/26/21 @ 09:51 by Lorraine Santamaria CMA) Surgical procedure on lower extremity within past 6 months Family History (Updated 08/26/21 @ 09:51 by Lorraine Santamaria CMA) Mother Mental confusion Other Seizures Social History Household Members: Family Housing: House Alcohol intake: former Patient Tobacco Use Status: Current everyday Tobacco user Cigarettes Per Day: 5 Years Smoked: 25 e-Cigarette/Vaping Use: Never Used service: No Current occupational status: disabled Hearing needs: No Review of Systems Const Reports as per HPI Assessment & Plan Assessment & Plan (1) Opioid use disorder: Code(s): F11.90 - Opioid use, unspecified, uncomplicated Plan: continue suboxone at current dose follow up 2 weeks (2) Post-traumatic stress disorder, chronic: Code(s): F43.12 - Post-traumatic stress disorder, chronic Plan: seroquel 25mg BID Medications: New quetiapine (Seroquel) 25 mg PO BID 60 tabs 0RF Telehealth Telehealth Location of provider rendering services: practice address Location of patient: address on file Patient Identification confirmed using: Name, : Yes Telehealth method: voice only Patient verbally consented to treatment: Yes Patient verbally consented to billing insurance company: Yes Coding Level of Care Code Tele Est Pt Level 3 (42452) Diagnoses Opioid use disorder F11.90 Post-traumatic stress disorder, chronic F43.12 Time Spent (min) 30 Comment 20 mins with patient remainder on chart review and documentation
== END 2023-05-19 09:48 | disposition home or self-care (01) ==
PROVIDERS: PCP Family Medicine; Visit Provider Nurse Practitioner Psychiatric/Mental Health
DX: F11.90 Opioid use, unspecified, uncomplicated (principal); F43.12 Post-traumatic stress disorder, chronic
CPT/HCPCS: 99443

== ENCOUNTER → 2023-05-19 08:56 | Outpatient (BNVA) | payer MEDICARE, MEDICAID, SELFPAY | PROVIDERS: PCP Family Medicine; Visit Provider Nurse Practitioner Psychiatric/Mental Health ==

== ENCOUNTER 2023-06-20 08:59 | Outpatient (AMB) | payer MEDICARE, MEDICAID, SELFPAY ==
--- NOTE | 2023-06-20 09:00 | MHC.AM.SUB ---
Intake Intake Visit Reasons: MAT Visit Allergies No Known Allergies [No Known Allergies*] Allergy (Verified 05/04/23 10:14) HPI MAT Visit HPI Details Patient presents for telehealth follow up Reports feeling better --feeling more like himself physically Has been spending time with his daughter Doing well with recovery [facility] Medical History (Updated 09/12/22 @ 10:14 by Ameya Bills) Opioid use disorder, severe, in sustained remission, on maintenance therapy Other terminal gauger (current) drug therapy Surgical History (Updated 08/26/21 @ 09:51 by Lorraine Santamaria CMA) Surgical procedure on lower extremity within past 6 months Family History (Updated 08/26/21 @ 09:51 by Lorraine Santamaria CMA) Mother Mental confusion Other Seizures Social History Household Members: Family Housing: House Alcohol intake: former Patient Tobacco Use Status: Current everyday Tobacco user Cigarettes Per Day: 5 Years Smoked: 25 e-Cigarette/Vaping Use: Never Used service: No Current occupational status: disabled Hearing needs: No Review of Systems Const Reports as per HPI and Reports no additional complaints Assessment & Plan Assessment & Plan (1) Opioid use disorder: Code(s): F11.90 - Opioid use, unspecified, uncomplicated Plan: continue suboxone at current dose (2) Post-traumatic stress disorder, chronic: Code(s): F43.12 - Post-traumatic stress disorder, chronic Plan: continue seroquel 25mg BID Telehealth Telehealth Location of provider rendering services: practice address Location of patient: address on file Patient Identification confirmed using: Name, : Yes Telehealth method: voice only Patient verbally consented to treatment: Yes Patient verbally consented to billing insurance company: Yes Coding Level of Care Code Tele Est Pt Level 3 (35562) Diagnoses Opioid use disorder F11.90 Post-traumatic stress disorder, chronic F43.12 Time Spent (min) 25 Comment 15 mins with patient remainder of time chart review and documentation
== END 2023-06-20 09:33 | disposition home or self-care (01) ==
PROVIDERS: PCP Family Medicine; Visit Provider Nurse Practitioner Psychiatric/Mental Health
DX: F11.90 Opioid use, unspecified, uncomplicated (principal); F43.12 Post-traumatic stress disorder, chronic
CPT/HCPCS: 99443

== ENCOUNTER → 2023-06-20 08:59 | Outpatient (BNVA) | payer MEDICARE, MEDICAID, SELFPAY | PROVIDERS: PCP Family Medicine; Visit Provider Nurse Practitioner Psychiatric/Mental Health ==

== ENCOUNTER 2023-07-18 10:03 | Outpatient (AMB) | payer MEDICARE, MEDICAID, SELFPAY ==
--- NOTE | 2023-07-18 10:03 | A.OFFVISCC_ITS ---
Intake Intake Visit Reasons: MAT Visit Allergies No Known Allergies [No Known Allergies*] Allergy (Verified 05/04/23 10:14) HPI MAT Visit HPI Details Patient presents for follow up via telehealth due to transportation issues Currently prescribed Suboxone 8mg BID Reports that he continues to do well with recovery Bright affect -- I feel great Sleeping a couple hours at night, denies cravings [facility] Medical History (Updated 09/12/22 @ 10:14 by Ameya Bills) Opioid use disorder, severe, in sustained remission, on maintenance therapy Other hothouse worker (current) drug therapy Surgical History (Updated 08/26/21 @ 09:51 by Lorraine Santamaria CMA) Surgical procedure on lower extremity within past 6 months Family History (Updated 08/26/21 @ 09:51 by Lorraine Santamaria CMA) Mother Mental confusion Other Seizures Social History Household Members: Family Housing: House Alcohol intake: former Patient Tobacco Use Status: Current everyday Tobacco user Cigarettes Per Day: 5 Years Smoked: 25 e-Cigarette/Vaping Use: Never Used service: No Current occupational status: disabled Hearing needs: No Review of Systems Const Reports as per HPI Assessment & Plan Assessment & Plan (1) Opioid use disorder: Code(s): F11.90 - Opioid use, unspecified, uncomplicated Plan: * continue suboxone at current dose * relapse prevention discussion * follow up one month Medications: Refilled buprenorphine-naloxone 8-2 mg (Suboxone) 1 film sublingual BID 60 ea 0RF Telehealth Telehealth Location of provider rendering services: practice address Location of patient: address on file Patient Identification confirmed using: Name, : Yes Telehealth method: voice only Patient verbally consented to treatment: Yes Patient verbally consented to billing insurance company: Yes Coding Level of Care Code Tele Est Pt Level 3 (50879) Diagnoses Opioid use disorder F11.90 Time Spent (min) 25 Comment 15 mins with patient remainder on chart review and documentation
== END 2023-07-18 10:26 | disposition home or self-care (01) ==
LOC: HO.HCC 10:03
PROVIDERS: PCP Family Medicine; Visit Provider Nurse Practitioner Psychiatric/Mental Health
DX: F11.90 Opioid use, unspecified, uncomplicated (principal)
CPT/HCPCS: 99443

== ENCOUNTER → 2023-07-18 10:03 | Outpatient (BNVA) | payer MEDICARE, MEDICAID, SELFPAY | PROVIDERS: PCP Family Medicine; Visit Provider Nurse Practitioner Psychiatric/Mental Health ==

== ENCOUNTER 2023-08-08 08:58 | Outpatient (AMB) | payer MEDICARE, MEDICAID, SELFPAY ==
--- NOTE | 2023-08-08 09:00 | MHC.AM.SUB ---
Intake Intake Visit Reasons: MAT Visit Allergies No Known Allergies [No Known Allergies*] Allergy (Verified 05/04/23 10:14) HPI MAT Visit HPI Details Patient presents for [facility] treatment follow up Currently prescribed Suboxone 8mg BID Still has no car-- PCP appt 08/31 Doing well with recovery Not sleeping well again. Increased appetite Reviewed side effects of seroquel --including increased appetite and weight gain Lab work already ordered by PCP --reminded to complete before his appt. [facility] Medical History (Updated 09/12/22 @ 10:14 by Ameya Bills) Opioid use disorder, severe, in sustained remission, on maintenance therapy Other extermination supervisor (current) drug therapy Surgical History (Updated 08/26/21 @ 09:51 by Lorraine Santamaria CMA) Surgical procedure on lower extremity within past 6 months Family History (Updated 08/26/21 @ 09:51 by Lorraine Santamaria CMA) Mother Mental confusion Other Seizures Social History Household Members: Family Housing: House Alcohol intake: former Patient Tobacco Use Status: Current everyday Tobacco user Cigarettes Per Day: 5 Years Smoked: 25 e-Cigarette/Vaping Use: Never Used service: No Current occupational status: disabled Hearing needs: No Review of Systems Const Reports as per HPI Assessment & Plan Assessment & Plan (1) Opioid use disorder: Code(s): F11.90 - Opioid use, unspecified, uncomplicated Plan: continue suboxone at current dose refilled prescriptions follow up one month no other changes to medication--will review lab work first Medications: Refilled clonidine HCl 0.1 mg PO TID 90 tabs 3RF buprenorphine-naloxone 8-2 mg (Suboxone) 1 film sublingual BID 60 ea 0RF Telehealth Telehealth Location of provider rendering services: practice address Location of patient: address on file Patient Identification confirmed using: Name, : Yes Telehealth method: voice only Patient verbally consented to treatment: Yes Patient verbally consented to billing insurance company: Yes Coding Level of Care Code Tele Est Pt Level 3 (00984) Diagnoses Opioid use disorder F11.90 Time Spent (min) 30 Comment 20 mins with patient remainder on chart review and documentation
== END 2023-08-08 09:16 | disposition home or self-care (01) ==
PROVIDERS: PCP Family Medicine; Visit Provider Nurse Practitioner Psychiatric/Mental Health
DX: F11.90 Opioid use, unspecified, uncomplicated (principal)
CPT/HCPCS: 99443

== ENCOUNTER → 2023-08-08 08:58 | Outpatient (BNVA) | payer MEDICARE, MEDICAID, SELFPAY | PROVIDERS: PCP Family Medicine; Visit Provider Nurse Practitioner Psychiatric/Mental Health ==

== ENCOUNTER 2023-09-29 08:50 | Outpatient (AMB) | payer MEDICARE, MEDICAID, SELFPAY ==
--- NOTE | 2023-09-29 08:59 | A.OFFPC_ITS ---
Vital Signs 09/29/23 09:00 Height 5 ft 5 in Weight 185 lb 6 oz BMI 30.8 BP 120/70 Blood Pressure Location Lt brachial Position Sitting Pulse 98 Pulse Source Pulse Oximeter Pulse Oximetry (%) 98 Oxygen Delivery Method Room Air Intake Visit Reasons: PE Intake Note: Patient is here for his physical today. Allergies No Known Allergies [No Known Allergies*] Allergy (Verified 09/29/23 09:03) Tobacco use date assessed: 09/29/23 Dental Screening Dental Screen Date: 09/29/23 Did you have a dental visit in the last 12 months?: No Did you have a dental problem in the last 6 months where you did not have access to dental care?: No Was dental information given to patient?: Yes HPI PE HPI Details 47 y/o male presents for an extended exa m with f/u labs and health maintenance. No recent labs to review. He is on fenofibrate 54mg for his triglycerides. Had elevated fasting glucose and last A1c 5.6% in 2021. Pt reports some constipation. [facility] Medical History Opioid use disorder, severe, in sustained remission, on maintenance therapy Other residential (current) drug therapy Surgical History Surgical procedure on lower extremity within past 6 months Family History Mother Mental confusion Other Seizures Social History Household Members: Family Housing: House Alcohol intake: former Patient Tobacco Use Status: Current everyday Tobacco user Cigarettes Per Day: 10 Years Smoked: 25 e-Cigarette/Vaping Use: Never Used service: No Current occupational status: disabled Hearing needs: No Questionnaire PHQ-9 Over the last 2 weeks, how often have you been bothered by any of the following problems? 1. Little interest or pleasure in doing things: not at all 2. Feeling down, depressed, or hopeless: not at all 3. Trouble falling or staying asleep, or sleeping too much: not at all 4. Feeling tired or having little energy: not at all 5. Poor appetite or overeating: not at all 6. Feeling bad about yourself - or that you are a failure or have let yourself or your family down: not at all 7. Trouble concentrating on things, such as reading the newspaper or watching television: not at all 8. Moving or speaking so slowly that other people could have noticed. Or the opposite - being so fidgety or restless that you have been moving around a lot more than usual: not at all 9. Thoughts that you would be better off or of hurting yourself in some way: not at all Total score: 0 Depression Screening Interpretation: Negative Depression Screening Done: Yes Source: Developed by Drs. Jose Anaya, Evonne Abdul, Beltran Valencia and colleagues, with an educational albert from [employer]. Thrive Questionnaire Date Thrive assessed: 09/29/23 I am a: Patient What is your living situation today?: I have a steady place to live Within the past 12 months, did the food you bought not last and you didn't have the money to get more?: Never true Within the past 12 months, did you worry whether your food would run out before you got money to buy more?: Never true Do you have trouble paying for medicines?: No Do you have trouble getting transportation to medical appointments?: Yes Do you have trouble paying your heating and electricity bill?: No Do you have trouble taking care of your child, family member or friend?: No Do you have trouble with day-to-day activities such as bathing, preparing meals, shopping, managing finances, etc.?: No Are you currently unemployed and looking for a job?: No Are you interested in more education?: No THRIVE Score: 1 AUDIT C Alcohol Use Questionnaire (AUDIT-C) 1. How often do you have a drink containing alcohol?: Never 3. How often do you have six or more drinks on one occasion?: Never Total Score: 0 KLEVER-7 AMB Questionnaire KLEVER-7 Date KLEVER - 7 assessed: 09/29/23 Feeling nervous, anxious, or on edge: 3 = Nearly every day Not being able to stop or control worryin = Nearly every day Worrying too much about different things: 3 = Nearly every day Trouble relaxin = Nearly every day Being so restless that it is hard to sit still: 0 = Not at all Becoming easily annoyed or irritable: 3 = Nearly every day Feeling afraid as if something awful might happen: 1 = Several days Total KLEVER-7 score (0-4 normal; 5-9 mild; 10-14 moderate; 15-21 severe): 16 Source: Developed by Drs. Jose Anaya, Evonne Abdul, Beltran Valencia and colleagues, with an educational labert from [employer]. Review of Systems Const Denies chills, Denies fatigue, Denies fever(s), Denies headache(s) and Denies w eakness Eyes Denies change in vision ENT Denies dizziness, Denies headache(s), Denies hearing loss, Denies nasal congestion, Denies sinus pain, Denies sinus pressure and Denies sore throat Card Denies chest pain, Denies lightheadedness, Denies dyspnea and Denies other (palpitations) Resp Denies cough, Denies dyspnea and Denies wheezing GI Denies abdominal pain, Denies melena, Denies hematochezia, Denies change in bowel habits, Reports constipation, Denies dyspepsia and Denies nausea Denies hematuria and Denies dysuria Musc Denies abnormal gait, Denies myalgias, Denies arthralgias, Denies numbness and Denies tingling Skin/Breast Denies rash, Denies unusual bruising and Denies wounds Neuro Denies abnormal gait, Denies dizziness, Denies headache(s), Denies memory loss, Denies numbness, Denies Sensory deficit (Neuro), Denies tingling and Denies weakness Psych Denies anxiety, Denies depression and Denies memory loss Endo Denies cold intolerance, Denies fatigue, Denies heat intolerance, Denies polydipsia and Denies polyuria Joaquin/Lymph Denies easy bleeding and Denies easy bruising Aller/Immun Denies wheezing Physical exam (Primary Care) Vital Signs: Last Vital Signs Pulse 98 09/29/23 09:00 BP 120/70 09/29/23 09:00 Pulse Ox 98 09/29/23 09:00 Oxygen Delivery Method Room Air 09/29/23 09:00 BMI result Body Mass Index 30.8 Tobacco/Smoking Status: Tobacco use Status Tobacco use date assessed 09/29/23 09/29/23 09:04 Patient Tobacco Use Status Current everyday Tobacco 09/29/23 09:02 e-Cigarette/Vaping Use Never Used 09/29/23 09:02 PHQ-9: PHQ-9 Score PHQ-9: Total score 0 09/29/23 09:46 Depression Screening Interpretation: Negative Thrive Assessment: Date of Thrive Assessment Date Thrive assessed 09/29/23 09/29/23 09:10 Const General: no acute distress, well developed, alert and awake Nutritional Appearance: well nourished Orientation/consciousness: patient oriented x3 HENMT Head: Yes normocephalic and Yes atraumatic Ears: hearing grossly normal bilaterally and TM's normal bilaterally General nose exam: Normal external nose present and Normal nares present Mouth: Normal oral and palatal mucosa present and moist mucous membranes Teeth and gingiva: dentition normal Throat: Yes posterior oropharynx normal Eyes General: appearance normal, both eyes and all related structures Pupils: Equal, round and reactive pupils present and Pupil accommodation reflex normal EOM: EOMs intact bilaterally Neck Neck: Yes normal visual inspection, Yes no lymphadenopathy and Yes trachea midline Thyroid: Thyroid normal Carotids: no bruits Lymphatic: no lymphadenopathy noted Chest Chest palpation & inspection: normal inspection of the chest Resp Effort & Inspection: normal respiratory effort Auscultation: clear to auscultation bilaterally Cardio Rate: regular rate Rhythm: regular rhythm Heart sounds: S1 normal heart sound present, S2 normal heart sound present, no gallops, no murmurs and no rubs Bruits: no abdominal aortic bruits and no carotid bruits GI Palpation (GI): No Abdominal aortic bruit present, Soft to palpation, nontender, No hepatosplenomegaly present and No Rebound tenderness present Auscultation: normal bowel sounds General: Yes no CVA tenderness Back/Spine/Pelvis Back: no CVA tenderness Cervical Spine: cervical ROM normal and No Cervical spine tenderness Thoracic/Lumbar Spine: thoraco-lumbar ROM normal, No pain with thoraco-lumbar ROM, No thoracic spinal tenderness and No lumbar spinal tenderness Skin Lesions: no lesions Rashes: no rashes Trauma: no lacerations or abrasions Wounds: no wounds Nails: normal Neuro General: patient oriented x3 Cranial nerves: Yes Equal, round and reactive pupils present Cognition (Neuro): normal cognition Gait exam (Neuro): Normal gait present Motor exam (neuro): 5/5 motor strength present throughout Sensory Exam: No Sensory deficit (Neuro) Deep tendon reflexes (DTR's): Right patellar reflex intensity grade: 2+ and Left patellar reflex intensity grade: 2+ Extrem General: Yes normal to inspection and No edema Psych Appearance: grossly normal Affect: normal affect Attitude: cooperative Thought process: Normal thought process present Assessment and Plan Assessment & Plan (1) Hypertriglyceridemia: Code(s): E78.1 - Pure hyperglyceridemia Plan: Patient?has?a?history?of?significantly?high?triglycerides?and?had?been?on?fenofi brate?which?had?brought?those?levels?down?significantly?as?well. He?has?been?off?this?medication He?will?get?his?labs?drawn?this?coming?week?and?we?can?follow-up?by?telemedicine He?should?resume?fenofibrate (2) Screening for prostate cancer: Code(s): Z12.5 - Encounter for screening for malignant neoplasm of prostate Plan: PSA?was?within?normal?limits?at?last?check?a?year?ago Repeat?PSA (3) Elevated fasting glucose: Code(s): R73.01 - Impaired fasting glucose Plan: A1c?was?5.6?at?last?check?repeat?A1c (4) Constipation: Code(s): K59.00 - Constipation, unspecified Plan: Increase?hydration Can?use?soluble?fiber?supplement (5) Opioid use disorder: Code(s): F11.90 - Opioid use, unspecified, uncomplicated Plan: Regular?visits?with?[facility]and?I?encouraged?him?to?contin ue?this Stable (6) Screening for colon cancer: Code(s): Z12.11 - Encounter for screening for malignant neoplasm of colon Plan: Patient?is?47?and?due?for?1st?screening?colonoscopy-referred?to?Gastroenterology (7) Adult general medical exam: Code(s): Z00.00 - Encounter for general adult medical examination without abnormal findings Plan: 47-year-old?male?presents?for?an?extended?exam Orders: Orders Complete Blood Count Auto Diff Today Z00.00 - Encounter for general adult medical examination without abnormal findings Hemoglobin A1c Today R73.01 - Impaired fasting glucose Comprehensive Palmer. Panel Fast Today Z00.00 - Encounter for general adult medical examination without abnormal findings Lipid Panel Today Z00.00 - Encounter for general adult medical examination without abnormal findings Microalbumin, Random (w Creat) Today I10 - Essential (primary) hypertension Prostate Specific Antigen Scr Today Z12.5 - Encounter for screening for malignant neoplasm of prostate TSH reflex Free T4 Today Z00.00 - Encounter for general adult medical examination without abnormal findings UA and rflx microscopic Today Z00.00 - Encounter for general adult medical examination without abnormal findings Referrals Gastroenterology Referral Z12.11 - Encounter for screening for malignant neoplasm of colon Medications: Refilled fenofibrate 54 mg PO DAILY 90 tabs 1RF 90 days Z12.11 - Encounter for screening for malignant neoplasm of colon Coding Level of Care Code Est Pt Level 4 (94311) Diagnoses Hypertriglyceridemia E78.1 Screening for prostate cancer Z12.5 Elevated fasting glucose R73.01 Constipation K59.00 Opioid use disorder F11.90 Screening for colon cancer Z12.11 Adult general medical exam Z00.00
[2023-09-29 09:00] VITALS: BP 120/70; PULSE 98; O2SAT 98; BMI 30.8
== END 2023-09-29 10:02 | disposition home or self-care (01) ==
PROVIDERS: PCP Family Medicine; Visit Provider Family Medicine
DX: Z00.00 Encounter for general adult medical examination without abnormal findings (principal); E78.1 Pure hyperglyceridemia; Z12.5 Encounter for screening for malignant neoplasm of prostate; R73.01 Impaired fasting glucose; K59.00 Constipation, unspecified; F11.90 Opioid use, unspecified, uncomplicated; Z12.11 Encounter for screening for malignant neoplasm of colon
CPT/HCPCS: 99396

== ENCOUNTER 2023-10-16 09:09 | Outpatient (AMB) | payer MEDICARE, MEDICAID, SELFPAY ==
[2023-10-16 09:17] VITALS: BP 120/70; PULSE 98; RESP 19; O2SAT 98
--- NOTE | 2023-10-16 09:17 | A.OFFVISCC_ITS ---
Intake Vital Signs 10/16/23 09:17 BP 120/70 Blood Pressure Location Rt radial Position Sitting Respiration 19 Pulse 98 Pulse Source Pulse Oximeter Pulse Oximetry (%) 98 Oxygen Delivery Method Room Air Intake Visit Reasons: MAT Allergies No Known Allergies [No Known Allergies*] Allergy (Verified 09/29/23 09:03) HPI MAT HPI Details Patient presents for follow up of OUD and PTSD Currently prescribed Suboxone 8mg BID Missed most recent appt, but he states he has been taking suboxone Just saw PCP --has to get labs completed Mood has been stable, however he is becoming increasingly concerned as his mother's cancer has metastasized. Still engaged in therapy. Taking medications as prescribed [facility] Medical History Opioid use disorder, severe, in sustained remission, on maintenance therapy Other rat exterminator (current) drug therapy Surgical History Surgical procedure on lower extremity within past 6 months Family History Mother Mental confusion Other Seizures Social History Household Members: Family Housing: House Alcohol intake: former Patient Tobacco Use Status: Current everyday Tobacco user Cigarettes Per Day: 10 Years Smoked: 25 e-Cigarette/Vaping Use: Never Used service: No Current occupational status: disabled Hearing needs: No Review of Systems Const Reports as per HPI Physical Exam Vital Signs: Last Vital Signs Pulse 98 10/16/23 09:17 Resp 19 10/16/23 09:17 BP 120/70 10/16/23 09:17 Pulse Ox 98 10/16/23 09:17 Oxygen Delivery Method Room Air 10/16/23 09:17 Const General: cooperative and anxious Nutritional Appearance: overweight Orientation/consciousness: patient oriented x3 Limitations: no limitations Neuro General: patient oriented x3 Psych Appearance: well kempt Speech and movement: Clear speech present Affect: Anxious affect present Attitude: cooperative Thought process: Normal thought process present Thought content: Normal thought content present Insight: Fair insight present (Psych) Judgement: Fair judgement present (Psych) Assessment & Plan Assessment & Plan (1) Opioid use disorder: Code(s): F11.90 - Opioid use, unspecified, uncomplicated Plan: * continue suboxone at current dose * refilled prescriptions * follow up one month * no other changes to medication--will review lab work first (2) Post-traumatic stress disorder, chronic: Code(s): F43.12 - Post-traumatic stress disorder, chronic Plan: * no changes to medications * refills sent Medications: Refilled buprenorphine-naloxone 8-2 mg (Suboxone) 1 film sublingual BID 60 ea 0RF clonidine HCl 0.1 mg PO TID 90 tabs 3RF Coding Level of Care Code Est Pt Level 4 (66253) Diagnoses Opioid use disorder F11.90 Post-traumatic stress disorder, chronic F43.12
== END 2023-10-16 09:38 | disposition home or self-care (01) ==
PROVIDERS: PCP Family Medicine; Visit Provider Nurse Practitioner Psychiatric/Mental Health
DX: F11.90 Opioid use, unspecified, uncomplicated (principal); F43.12 Post-traumatic stress disorder, chronic
CPT/HCPCS: 99214

== ENCOUNTER → 2023-10-16 09:09 | Outpatient (BNVA) | payer MEDICARE, MEDICAID, SELFPAY | PROVIDERS: PCP Family Medicine; Visit Provider Nurse Practitioner Psychiatric/Mental Health | DX: F11.20 Opioid dependence, uncomplicated (principal); F43.12 Post-traumatic stress disorder, chronic | CPT/HCPCS: 99212 ==

== ENCOUNTER 2023-11-15 16:35 | Outpatient (AMB) | payer MEDICARE, MEDICAID, SELFPAY ==
--- NOTE | 2023-11-15 16:45 | A.OFFVISCC_ITS ---
Intake Visit Reasons: Mat Allergies No Known Allergies [No Known Allergies*] Allergy (Verified 09/29/23 09:03) HPI HPI Mat: Details: Patient presents for follow up via telehealth Doing well with recovery Tolerating medication Had wisdom tooth extracted earlier this week BH medications stable--sleeping 4 hours Discussed going outside -he has been taking walks around his neighborhood during the day [facility] Medical History Opioid use disorder, severe, in sustained remission, on maintenance therapy Other correction (current) drug therapy Surgical History Surgical procedure on lower extremity within past 6 months Family History Mother Mental confusion Other Seizures Social History Household Members: Family Housing: House Alcohol intake: former Patient Tobacco Use Status: Current everyday Tobacco user Cigarettes Per Day: 10 Years Smoked: 25 e-Cigarette/Vaping Use: Never Used service: No Current occupational status: disabled Hearing needs: No Review of Systems Const Reports as per HPI Telehealth Telehealth Telehealth Platform: Telephone Location of provider rendering services: practice address Location of patient: address on file Patient Identification confirmed using: Name, : Yes Telehealth method: voice only Patient verbally consented to treatment: Yes Patient verbally consented to billing insurance company: Yes Minutes spent on Phone/Video with Pt.: 25 Assessment & Plan Assessment & Plan (1) Opioid use disorder: Code(s): F11.90 - Opioid use, unspecified, uncomplicated Category: Medical Plan: * continue suboxone at current dose * follow up one month (2) Post-traumatic stress disorder, chronic: Code(s): F43.12 - Post-traumatic stress disorder, chronic Category: Medical Plan: * no changes to medications Medications: Refilled buprenorphine-naloxone 8-2 mg (Suboxone) 1 film sublingual BID 60 ea 0RF
== END 2023-11-15 16:59 | disposition home or self-care (01) ==
PROVIDERS: PCP Family Medicine; Visit Provider Nurse Practitioner Psychiatric/Mental Health
DX: F11.90 Opioid use, unspecified, uncomplicated (principal); F43.12 Post-traumatic stress disorder, chronic
CPT/HCPCS: 99443

== ENCOUNTER → 2023-11-15 16:35 | Outpatient (BNVA) | payer MEDICARE, MEDICAID, SELFPAY | PROVIDERS: PCP Family Medicine; Visit Provider Nurse Practitioner Psychiatric/Mental Health ==

== ENCOUNTER 2023-12-13 12:59 | Outpatient (AMB) | payer MEDICARE, MEDICAID, SELFPAY ==
--- NOTE | 2023-12-13 13:00 | A.OFFVISCC_ITS ---
Intake Visit Reasons: MAT Tele Allergies No Known Allergies [No Known Allergies*] Allergy (Verified 09/29/23 09:03) HPI HPI MAT Tele: Details: Patient presents for follow up via telehealth Yesterday was his birthday Bright affect Has been playing games on line continuing to spend time with family--finds this helps with his recovery no issues with medication dose denies side effects PFSH Medical History Opioid use disorder, severe, in sustained remission, on maintenance therapy Other fci (current) drug therapy Surgical History Surgical procedure on lower extremity within past 6 months Family History Mother Mental confusion Other Seizures Social History Household Members: Family Housing: House Alcohol intake: former Patient Tobacco Use Status: Current everyday Tobacco user Cigarettes Per Day: 10 Years Smoked: 25 e-Cigarette/Vaping Use: Never Used service: No Current occupational status: disabled Hearing needs: No Review of Systems Const Reports as per HPI and Reports no additional complaints Telehealth Telehealth Telehealth Platform: Telephone Location of provider rendering services: practice address Location of patient: address on file Patient Identification confirmed using: Name, : Yes Telehealth method: voice only Patient verbally consented to treatment: Yes Patient verbally consented to billing insurance company: Yes Minutes spent on Phone/Video with Pt.: 20 Assessment & Plan Assessment & Plan (1) Opioid use disorder: Code(s): F11.90 - Opioid use, unspecified, uncomplicated Category: Medical Plan: * continue suboxone at current dose * follow up 2 months (week of 02/11) (2) Post-traumatic stress disorder, chronic: Code(s): F43.12 - Post-traumatic stress disorder, chronic Category: Medical Plan: * no changes to medications
== END 2023-12-13 13:25 | disposition home or self-care (01) ==
PROVIDERS: PCP Family Medicine; Visit Provider Nurse Practitioner Psychiatric/Mental Health
DX: F11.90 Opioid use, unspecified, uncomplicated (principal); F43.12 Post-traumatic stress disorder, chronic
CPT/HCPCS: 99442

== ENCOUNTER → 2023-12-13 12:59 | Outpatient (BNVA) | payer MEDICARE, MEDICAID, SELFPAY | PROVIDERS: PCP Family Medicine; Visit Provider Nurse Practitioner Psychiatric/Mental Health ==

== ENCOUNTER 2024-02-14 13:00 | Outpatient (AMB) | payer MEDICARE, MEDICAID, SELFPAY ==
--- NOTE | 2024-02-14 13:03 | MHC.AM.SUB ---
Intake Visit Reasons: MAT Tele Allergies No Known Allergies [No Known Allergies*] Allergy (Verified 09/29/23 09:03) HPI HPI MAT Tele: Details: Patient presents for follow up via telehealth Currently prescribed Suboxone 8mg BID Tolerating current dose Increasing stress related to mother's cancer treatments and traveling to [place] daily starting next week Reflecting on being able to be present for his mother due to abstaining from substance use [facility] Medical History Opioid use disorder, severe, in sustained remission, on maintenance therapy Other exterminator helper termite (current) drug therapy Surgical History Surgical procedure on lower extremity within past 6 months Family History Mother Mental confusion Other Seizures Social History Household Members: Family Housing: House Alcohol intake: former Patient Tobacco Use Status: Current everyday Tobacco user Cigarettes Per Day: 10 Years Smoked: 25 e-Cigarette/Vaping Use: Never Used service: No Current occupational status: disabled Hearing needs: No Review of Systems Const Reports as per HPI and Reports no additional complaints Telehealth Telehealth Telehealth Platform: Telephone Location of provider rendering services: practice address Location of patient: address on file Patient Identification confirmed using: Name, : Yes Telehealth method: voice only Patient verbally consented to treatment: Yes Patient verbally consented to billing insurance company: Yes Minutes spent on Phone/Video with Pt.: 20 Assessment & Plan Assessment & Plan (1) Opioid use disorder: Code(s): F11.90 - Opioid use, unspecified, uncomplicated Category: Medical Plan: continue suboxone at current dose follow up 2 months
== END 2024-02-14 14:14 | disposition home or self-care (01) ==
PROVIDERS: PCP Family Medicine; Visit Provider Nurse Practitioner Psychiatric/Mental Health
DX: F11.90 Opioid use, unspecified, uncomplicated (principal)
CPT/HCPCS: 99213

== ENCOUNTER → 2024-02-14 13:00 | Outpatient (BNVA) | payer MEDICARE, MEDICAID, SELFPAY | PROVIDERS: PCP Family Medicine; Visit Provider Nurse Practitioner Psychiatric/Mental Health | DX: F11.90 Opioid use, unspecified, uncomplicated (principal); F43.12 Post-traumatic stress disorder, chronic ==

== ENCOUNTER 2024-04-10 08:56 | Outpatient (AMB) | payer MEDICARE, MEDICAID, SELFPAY ==
--- NOTE | 2024-04-10 08:57 | A.OFFVISCC_ITS ---
Intake Visit Reasons: MAT Tele Allergies No Known Allergies [No Known Allergies*] Allergy (Verified 09/29/23 09:03) [facility] MAT Tele: Details: Patient presents for follow up via telehealth Currently prescribed 8mg BID Tolerating current dose No issues related to recovery Still driving his mother to [place] every day for radiation treatment [facility] Medical History Opioid use disorder, severe, in sustained remission, on maintenance therapy Other terminal makeup operator (current) drug therapy Surgical History Surgical procedure on lower extremity within past 6 months Family History Mother Mental confusion Other Seizures Social History Household Members: Family Housing: House Alcohol intake: former Patient Tobacco Use Status: Current everyday Tobacco user Cigarettes Per Day: 10 Years Smoked: 25 e-Cigarette/Vaping Use: Never Used service: No Current occupational status: disabled Hearing needs: No Review of Systems Const Reports as per HPI Telehealth Telehealth Telehealth Platform: Telephone Location of provider rendering services: practice address Location of patient: address on file Patient Identification confirmed using: Name, : Yes Telehealth method: voice only Patient verbally consented to treatment: Yes Patient verbally consented to billing insurance company: Yes Minutes spent on Phone/Video with Pt.: 15 Assessment & Plan Assessment & Plan (1) Opioid use disorder, severe, in early remission: Code(s): F11.21 - Opioid dependence, in remission Category: Medical Plan: * continue suboxone at current dose * relapse prevention discussion (2) Major depressive disorder, recurrent episode, severe: Code(s): F33.2 - Major depressive disorder, recurrent severe without psychotic features Category: Medical Qualifiers: Psychotic features: without psychotic features Qualified Code(s): F33.2 - Major depressive disorder, recurrent severe without psychotic features Plan: * still seeing therapist every week * refills as needed Medications: Refilled buprenorphine-naloxone 8-2 mg (Suboxone) 1 film sublingual BID 60 ea 1RF
== END 2024-04-10 09:20 | disposition home or self-care (01) ==
PROVIDERS: PCP Family Medicine; Visit Provider Nurse Practitioner Psychiatric/Mental Health
DX: F11.21 Opioid dependence, in remission (principal); F33.2 Major depressive disorder, recurrent severe without psychotic features
CPT/HCPCS: 99442

== ENCOUNTER → 2024-04-10 08:56 | Outpatient (BNVA) | payer MEDICARE, MEDICAID, SELFPAY | PROVIDERS: PCP Family Medicine; Visit Provider Nurse Practitioner Psychiatric/Mental Health | DX: F11.90 Opioid use, unspecified, uncomplicated (principal); F43.12 Post-traumatic stress disorder, chronic ==

== ENCOUNTER 2024-06-05 08:48 | Outpatient (AMB) | payer MEDICARE, MEDICAID, SELFPAY ==
--- NOTE | 2024-06-05 08:49 | A.OFFVISCC_ITS ---
Intake Visit Reasons: MAT Tele Allergies No Known Allergies [No Known Allergies*] Allergy (Verified 09/29/23 09:03) HPI HPI MAT Tele: Details: Patient presents for follow up via telehealth Currently prescribed Subxone 8mg BID Denies any issues related to recovery Has been focusing on caring for his mother He reports cancer treatments are not as effective as they had hoped, and she continues to be seen in [place] He reports increasing anxiety and worry--likely related to his mother's medical condition Has started taking 3 seroquel in the evenings and 4 clonidines during the day 2 in AM 1 in afternoon and 1 in the evening denies any side effects --dry mouth, dizziness, etc Feels the increase in doses have been helpful with anxiety Denies any other issues --has PCP appt in October Review of Systems Const Reports as per HPI and Reports no additional complaints Telehealth Telehealth Telehealth Platform: Telephone Location of provider rendering services: practice address Location of patient: address on file Patient Identification confirmed using: Name, : Yes Telehealth method: voice only Patient verbally consented to treatment: Yes Patient verbally consented to billing insurance company: Yes Minutes spent on Phone/Video with Pt.: 20 Assessment & Plan Assessment & Plan (1) Opioid use disorder, severe, in early remission: Code(s): F11.21 - Opioid dependence, in remission Category: Medical Plan: * continue suboxone at current dose * relapse prevention discussion * follow up 2 months (2) Major depressive disorder, recurrent episode, severe: Code(s): F33.2 - Major depressive disorder, recurrent severe without psychotic features Category: Medical Qualifiers: Psychotic features: without psychotic features Qualified Code(s): F33.2 - Major depressive disorder, recurrent severe without psychotic features Plan: * increase seroquel to 150mg QHS * increase clonidine to 0.1mg QID Medications: New quetiapine 150 mg PO DAILY 90 tabs 0RF Refilled buprenorphine-naloxone 8-2 mg (Suboxone) 1 film sublingual BID 60 ea 1RF Discontinued quetiapine Discontinued Reason: Doctor's Order 25 mg PO BID 180 tabs 1RF quetiapine Discontinued Reason: Doctor's Order 50 - 100 mg (1 - 2 x 50 mg) PO BEDTIME 180 tabs 1RF PFSH Medical History Opioid use disorder, severe, in sustained remission, on maintenance therapy Other intermodal customer service (current) drug therapy Surgical History Surgical procedure on lower extremity within past 6 months Family History Mother Mental confusion Other Seizures Social History Household Members: Family Housing: House Alcohol intake: former Patient Tobacco Use Status: Current everyday Tobacco user Cigarettes Per Day: 10 Years Smoked: 25 e-Cigarette/Vaping Use: Never Used service: No Current occupational status: disabled Hearing needs: No
== END 2024-06-05 09:04 | disposition home or self-care (01) ==
PROVIDERS: PCP Family Medicine; Visit Provider Nurse Practitioner Psychiatric/Mental Health
DX: F11.21 Opioid dependence, in remission (principal); F33.2 Major depressive disorder, recurrent severe without psychotic features
CPT/HCPCS: 98967

== ENCOUNTER → 2024-06-05 08:48 | Outpatient (BNVA) | payer MEDICARE, MEDICAID, SELFPAY | PROVIDERS: PCP Family Medicine; Visit Provider Nurse Practitioner Psychiatric/Mental Health | DX: F11.90 Opioid use, unspecified, uncomplicated (principal); F43.12 Post-traumatic stress disorder, chronic ==

== ENCOUNTER 2024-08-02 09:23 | Outpatient (AMB) | payer MEDICARE, MEDICAID, SELFPAY ==
--- NOTE | 2024-08-02 09:24 | A.OFFVISCC_ITS ---
Intake Visit Reasons: Tele Allergies No Known Allergies [No Known Allergies*] Allergy (Verified 09/29/23 09:03) HPI HPI Tele: Details: Patient presents for follow up via telehealth Currently prescribed Suboxone 8mg BID Doing well with recovery --no concerns related to this States he has noted an increase in sweats--would like to trial increased dose Next PCP appt in October or November Mother still going to [place] 5 days per week for cancer treatments Review of Systems Const Reports as per HPI, Reports difficulty sleeping and Reports excessive sweating Endo Reports excessive sweating Telehealth Telehealth Telehealth Platform: Telephone Location of provider rendering services: practice address Location of patient: address on file Patient Identification confirmed using: Name, : Yes Telehealth method: voice only Patient verbally consented to treatment: Yes Patient verbally consented to billing insurance company: Yes Minutes spent on Phone/Video with Pt.: 15 PFSH Medical History Opioid use disorder, severe, in sustained remission, on maintenance therapy Other residential (current) drug therapy Surgical History Surgical procedure on lower extremity within past 6 months Family History Mother Mental confusion Other Seizures Social History Household Members: Family Housing: House Alcohol intake: former Patient Tobacco Use Status: Current everyday Tobacco user Cigarettes Per Day: 10 Years Smoked: 25 e-Cigarette/Vaping Use: Never Used service: No Current occupational status: disabled Hearing needs: No Assessment & Plan Assessment & Plan (1) Opioid use disorder, severe, in early remission: Code(s): F11.21 - Opioid dependence, in remission Category: Medical Plan: * dose increased to 8mg TID (will try 4mg, then increase to 8mg if needed) * follow up 2 months Medications: Changed From buprenorphine-naloxone 8-2 mg (Suboxone) 1 film sublingual BID 60 ea 1RF To buprenorphine-naloxone 8-2 mg (Suboxone) 1 film sublingual TID 90 ea 1RF
== END 2024-08-02 09:45 | disposition home or self-care (01) ==
PROVIDERS: PCP Family Medicine; Visit Provider Nurse Practitioner Psychiatric/Mental Health
DX: F11.21 Opioid dependence, in remission (principal)
CPT/HCPCS: 98016

== ENCOUNTER 2024-09-27 09:26 | Outpatient (AMB) | payer MEDICARE, MEDICAID, SELFPAY ==
--- NOTE | 2024-09-27 09:27 | MHC.AM.SUB ---
Intake Visit Reasons: Tele Allergies No Known Allergies [No Known Allergies*] Allergy (Verified 09/29/23 09:03) HPI HPI Tele: Details: Patient presents for follow up via telehealth Still driving to [place] everyday for his mothers cancer treatment Denies any issues related to recovery --tolerating suboxone 8mg TID Sleep continues to be an issue, however this is chronic and seroquel helpful anxiety--clonidine helpful Review of Systems Const Reports as per HPI Telehealth Telehealth Telehealth Platform: Telephone Location of provider rendering services: practice address Location of patient: address on file Patient Identification confirmed using: Name, : Yes Telehealth method: voice only Patient verbally consented to treatment: Yes Patient verbally consented to billing insurance company: Yes Minutes spent on Phone/Video with Pt.: 15 PFSH Medical History Opioid use disorder, severe, in sustained remission, on maintenance therapy Other equipment operator intermodal yard (current) drug therapy Surgical History Surgical procedure on lower extremity within past 6 months Family History Mother Mental confusion Other Seizures Social History Household Members: Family Housing: House Alcohol intake: former Patient Tobacco Use Status: Current everyday Tobacco user Cigarettes Per Day: 10 Years Smoked: 25 e-Cigarette/Vaping Use: Never Used service: No Current occupational status: disabled Hearing needs: No Assessment & Plan Assessment & Plan (1) Opioid use disorder, severe, in early remission: Code(s): F11.21 - Opioid dependence, in remission Category: Medical Plan: continue suboxone at current dose follow up 3 months (2) Agoraphobia with panic disorder: Code(s): F40.01 - Agoraphobia with panic disorder Category: Medical Plan: continue clonidine and seroquel continue with therapist Medications: Refilled clonidine HCl 0.1 mg PO TID 270 tabs 2RF
== END 2024-09-27 09:42 | disposition home or self-care (01) ==
LOC: HO.HCC 09:26
PROVIDERS: PCP Family Medicine; Visit Provider Nurse Practitioner Psychiatric/Mental Health
DX: F11.21 Opioid dependence, in remission (principal); F40.01 Agoraphobia with panic disorder
CPT/HCPCS: 99213

== ENCOUNTER 2025-05-12 10:28 | Outpatient (AMB) | payer MEDICARE, MEDICAID, SELFPAY ==
[2025-05-12 11:00] VITALS: BP 136/78; PULSE 100; O2SAT 98; BMI 28.6
--- NOTE | 2025-05-12 11:00 | A.OFFVIS_ITS ---
<Statement entered by Kelsey Peraza RN - 05/12/25 14:16> Ameya was a patient at the [facility] with the previous provider and maintained recovery with buprenorphine/naloxone. He was unable to get to the clinic to maintain prescription due to transportation and other extenuating circumstances and relapsed. He reports relapse in January of this year to present. Last use this morning- 2 bags heroin reduced from approximately 5 bags daily. Ameya also reports buying tramadol off of the street to help with sleep, (educated with risks of buying pills off street) seroquel had helped in the past. Ameya reports a good relationship with his therapist at [facility], though reports that they do not prescribe any medications, [facility] referral submitted in the event that they do not have prescribers. Ameya iw not interested in Peer Recovery Support. Vital Signs 05/12/25 11:00 Height 5 ft 5 in Weight 172 lb BMI 28.6 BP 136/78 Pulse 100 Pulse Oximetry (%) 98 Intake Visit Reasons: MAT Allergies No Known Allergies (No Known Allergies*) Allergy (Verified 05/12/25 11:02) HPI Comments Details: A 49-year-old male presents for a follow up visit for ELIZABETH, last visit on September 2024. Since the last visit reports relapsed and is using heroin, last used 2 bags today. Acknowledges importance of waiting a minimal 12 through 16 hours since last use and 24 hours from last fentanyl use. Engages in conversation re: caring for mother that is undergoing treatment for abdominal cancer. In the past, maintained sobriety and did well with buprenorphine-naloxone 8-2 mg TID. Reports ready to restart treatment with buprenorphine-naloxone. [facility] Medical History Opioid use disorder, severe, in sustained remission, on maintenance therapy Other medical terminologist (current) drug therapy Surgical History Surgical procedure on lower extremity within past 6 months Family History Mother Mental confusion Other Seizures Social History Household Members: Family Housing: House Alcohol intake: former Patient Tobacco Use Status: Current everyday Tobacco user Cigarettes Per Day: 10 Years Smoked: 25 e-Cigarette/Vaping Use: Never Used service: No Current occupational status: disabled Hearing needs: No Review of Systems Const All systems reviewed & are unremarkable except as noted in HPI and below Physical Exam Vital Signs: Last Vital Signs Pulse 100 05/12/25 11:00 BP 136/78 05/12/25 11:00 Pulse Ox 98 05/12/25 11:00 BMI result Body Mass Index 28.6 Const General: cooperative Results AMB 14 Panel Urine Drug Screen Urine Marijuana (THC) Positive Last Edit by Ne Kemp CMA on 5 11:06 Urine Cocaine Negative Last Edit by Ne Kemp CMA on 05/12/25 11:06 Urine Morphine Positive Last Edit by Ne Kemp CMA on 05/12/25 11:06 Urine Methamphetamine Negative Last Edit by Ne Kemp CMA on 5 11:06 Urine Amphetamine Negative Last Edit by Ne Kemp CMA on 05/12/25 11 :06 Urine Benzodiazepine Negative Last Edit by Ne Kemp CMA on 05/12/25 11:06 Urine Barbiturates Negative Last Edit by Ne Kemp CMA on 05/12/25 11:06 Urine Methadone Negative Last Edit by Ne Kemp CMA on 05/12/25 11:0 6 Urine Buprenorphine Negative Last Edit by Ne Kemp CMA on 05/12/25 11:06 Urine Tricyclic Antidepressant Negative Last Edit by Ne Kemp CMA o n 05/12/25 11:06 Urine MDMA Positive Last Edit by Ne Kemp CMA on 05/12/25 11:06 Urine Oxycodone Negative Last Edit by Ne Kemp CMA on 05/12/25 11:0 6 Urine Phencyclidine Negative Last Edit by Ne Kemp CMA on 05/12/25 11:06 Urine Propoxyphene Negative Last Edit by Ne Kemp CMA on 05/12/25 11:06 Results Reviewed Results Reviewed: Laboratory Last Values POC Urine Buprenorphine Negative 05/12/25 11:03 POC Urine Morphine Positive 05/12/25 11:03 POC Urine Oxycodone Negative 05/12/25 11:03 POC Urine Methadone Negative 05/12/25 11:03 POC Urine Propoxyphene Negative 05/12/25 11:03 POC Urine Barbiturates Negative 05/12/25 11:03 POC U Tricyclic Antidpr Negative 05/12/25 11:03 POC Urine PCP Negative 05/12/25 11:03 POC Ur Amphetamines Negative 05/12/25 11:03 POC Ur Methamphetamine Negative 05/12/25 11:03 POC Urine MDMA Positive 05/12/25 11:03 POC Ur Benzodiazepine Negative 05/12/25 11:03 POC Urine Cocaine Negative 05/12/25 11:03 POC Ur Marijuana (THC) Positive 05/12/25 11:03 Assessment & Plan Assessment & Plan (1) Opioid use disorder, severe, dependence: Code(s): F11.20 - Opioid dependence, uncomplicated Category: Medical Plan The plan of care is to wait 12-16 hours since last use of an opiate and 24 hours since last use fentanyl before restarting treatment with buprenorphine-naloxone 8-2 mg TID to prevent precipitated withdrawals. Follow-up in 7 days or sooner if needed. Orders: Orders AMB 14 Panel Urine Drug Screen Today Z51.81 - Encounter for therapeutic drug level monitoring Medications: New naloxone 4 mg/actuation (Narcan) spray 1 dose into ONE nostril; alternate nostrils w each dose until help arrives 1 spray intranasal Q2M 2 ea 0RF Changed From buprenorphine-naloxone 8-2 mg (Suboxone) 1 film sublingual TID 90 ea 2RF To buprenorphine-naloxone 8-2 mg (Suboxone) 1 film sublingual TID 24 ea 0RF 8 days Patient Instructions: - Start buprenorphine-naloxone post waiting minimally 12-16 hours or up to 24 hours since last use. - Narcan prescribed. - Follow-up in 7 days or sooner if needed. - Call with questions, concerns, or to report side effects/new onset of symptoms to [facility]. - The patient verbalized understanding and agreed with plan of care. Coding Level of Care Code Est Pt Level 3 (19667) Diagnoses Opioid use disorder, severe, dependence F11.20
== END 2025-05-12 11:25 | disposition home or self-care (01) ==
LOC: HO.HCC 10:29
PROVIDERS: PCP Family Medicine; Visit Provider Clinical Nurse Specialist Psychiatric/Mental Health
DX: F11.20 Opioid dependence, uncomplicated (principal); Z51.81 Encounter for therapeutic drug level monitoring
CPT/HCPCS: 99213

== ENCOUNTER → 2025-05-12 10:28 | Outpatient (BNVA) | payer MEDICARE, MEDICAID, SELFPAY | PROVIDERS: PCP Family Medicine; Visit Provider Clinical Nurse Specialist Psychiatric/Mental Health | DX: F11.20 Opioid dependence, uncomplicated (principal); Z72.0 Tobacco use | CPT/HCPCS: 80307; 99212 ==

== ENCOUNTER 2025-05-20 09:48 | Outpatient (AMB) | payer MEDICARE, MEDICAID, SELFPAY ==
[2025-05-20 10:13] VITALS: BP 126/70; PULSE 80; O2SAT 97
--- NOTE | 2025-05-20 10:13 | MHC.OFFVIS ---
Vital Signs 05/20/25 10:13 BP 126/70 Pulse 80 Pulse Oximetry (%) 97 Intake Visit Reasons: MAT Allergies No Known Allergies (No Known Allergies*) Allergy (Verified 05/20/25 10:14) HPI Comments Details: A 49-year-old male presents for a follow-up visit r/t ELIZABETH, and reports he was able to initiate treatment with buprenorphine-naloxone post waiting 72 hours since last opiate use. Reports doing well and feeling happy he was able to successfully engage in treatment with buprenorphine-naloxone 8-2 mg TID. Denies use of opiates, alcohol, and other substances. Engages in conversation re: continuing to assist mother through cancer treatments. [facility] Medical History Opioid use disorder, severe, in sustained remission, on maintenance therapy Other keno terminal operator (current) drug therapy Surgical History Surgical procedure on lower extremity within past 6 months Family History Mother Mental confusion Other Seizures Social History Household Members: Family Housing: House Alcohol intake: former Patient Tobacco Use Status: Current everyday Tobacco user Cigarettes Per Day: 10 Years Smoked: 25 e-Cigarette/Vaping Use: Never Used service: No Current occupational status: disabled Hearing needs: No Review of Systems Const All systems reviewed & are unremarkable except as noted in HPI and below Physical Exam Vital Signs: Last Vital Signs Pulse 80 05/20/25 10:13 BP 126/70 05/20/25 10:13 Pulse Ox 97 05/20/25 10:13 Const General: cooperative Assessment & Plan Assessment & Plan (1) Opioid use disorder, severe, dependence: Code(s): F11.20 - Opioid dependence, uncomplicated Category: Medical Plan The plan of care is to continue with buprenorphine-naloxone 8-2 mg TID. Declines referral for a peer public speaking coach and reports connected to mental health services. Follow-up in 1 month or sooner if needed. Medications: Changed From buprenorphine-naloxone 8-2 mg (Suboxone) 1 film sublingual TID 8 days 24 ea 0RF To buprenorphine-naloxone 8-2 mg (Suboxone) 1 film sublingual TID 90 ea 0RF 30 days Patient Instructions: - Continue with buprenorphine-naloxone as prescribed. - Follow-up in 1 month or sooner if needed. - Call with questions, concerns, or to report side effects/new onset of symptoms to [facility]. - The patient verbalized understanding and agreed with plan of care. Coding Level of Care Code Est Pt Level 3 (47856) Diagnoses Opioid use disorder, severe, dependence F11.20
== END 2025-05-20 10:25 | disposition home or self-care (01) ==
LOC: HO.HCC 09:48
PROVIDERS: PCP Family Medicine; Visit Provider Clinical Nurse Specialist Psychiatric/Mental Health
DX: F11.20 Opioid dependence, uncomplicated (principal)
CPT/HCPCS: 99213

== ENCOUNTER → 2025-05-20 09:48 | Outpatient (BNVA) | payer MEDICARE, MEDICAID, SELFPAY | PROVIDERS: PCP Family Medicine; Visit Provider Clinical Nurse Specialist Psychiatric/Mental Health | DX: F11.20 Opioid dependence, uncomplicated (principal) | CPT/HCPCS: 99212 ==

== ENCOUNTER 2025-06-18 09:41 | Outpatient (AMB) | payer MEDICARE, MEDICAID, SELFPAY ==
--- NOTE | 2025-06-18 10:14 | MHC.AM.SUB ---
Vital Signs 06/18/25 10:16 BP 138/80 Pulse 104 H Pulse Oximetry (%) 97 Intake Visit Reasons: MAT Allergies No Known Allergies (No Known Allergies*) Allergy (Verified 06/18/25 10:17) HPI Comments Details: A 49-year-old male presents for a follow-up visit r/t ELIZABETH in early remission with buprenorphine-naloxone 8-2 mg TID. Denies use of opiates, alcohol, and other substances with the exception of cannabis use. Reports connected to a mental health therapist and psychiatrist. Engages in conversation re: focused on supporting mother during treatment for cancer. Review of Systems Const All systems reviewed & are unremarkable except as noted in HPI and below Physical Exam Vital Signs: Last Vital Signs Pulse 104 H 06/18/25 10:16 BP 138/80 06/18/25 10:16 Pulse Ox 97 06/18/25 10:16 Const General: cooperative Results AMB 14 Panel Urine Drug Screen Urine Marijuana (THC) Positive Last Edit by Ne Kemp CMA on 06/18/25 10:20 Urine Cocaine Negative Last Edit by Ne Kemp CMA on 06/18/25 10:20 Urine Morphine Negative Last Edit by Ne Kemp CMA on 06/18/25 10:20 Urine Methamphetamine Negative Last Edit by Ne Kemp CMA on 06/18/25 10:20 Urine Amphetamine Negative Last Edit by Ne Kemp CMA on 06/18/25 10:20 Urine Benzodiazepine Negative Last Edit by Ne Kemp CMA on 06/18/25 10:20 Urine Barbiturates Negative Last Edit by Ne Kemp CMA on 06/18/25 10:20 Urine Methadone Negative Last Edit by Ne Kemp CMA on 06/18/25 10:20 Urine Buprenorphine Positive Last Edit by Ne Kemp CMA on 06/18/25 10:20 Urine Tricyclic Antidepressant Negative Last Edit by Ne Kemp CMA on 06/18/25 10:20 Urine MDMA Negative Last Edit by Ne Kemp CMA on 06/18/25 10:20 Urine Oxycodone Negative Last Edit by Ne Kemp CMA on 06/18/25 10:20 Urine Phencyclidine Negative Last Edit by Ne Kemp CMA on 06/18/25 10:20 Urine Propoxyphene Negative Last Edit by Ne Kemp CMA on 06/18/25 10:20 Results Reviewed Results Reviewed: Laboratory Last Values POC Urine Buprenorphine Positive 06/18/25 10:17 POC Urine Morphine Negative 06/18/25 10:17 POC Urine Oxycodone Negative 06/18/25 10:17 POC Urine Methadone Negative 06/18/25 10:17 POC Urine Propoxyphene Negative 06/18/25 10:17 POC Urine Barbiturates Negative 06/18/25 10:17 POC U Tricyclic Antidpr Negative 06/18/25 10:17 POC Urine PCP Negative 06/18/25 10:17 POC Ur Amphetamines Negative 06/18/25 10:17 POC Ur Methamphetamine Negative 06/18/25 10:17 POC Urine MDMA Negative 06/18/25 10:17 POC Ur Benzodiazepine Negative 06/18/25 10:17 POC Urine Cocaine Negative 06/18/25 10:17 POC Ur Marijuana (THC) Positive 06/18/25 10:17 PFSH Medical History Opioid use disorder, severe, in sustained remission, on maintenance therapy Other termite control technician (current) drug therapy Surgical History Surgical procedure on lower extremity within past 6 months Family History Mother Mental confusion Other Seizures Social History Household Members: Family Housing: House Alcohol intake: former Patient Tobacco Use Status: Current everyday Tobacco user Cigarettes Per Day: 10 Years Smoked: 25 e-Cigarette/Vaping Use: Never Used service: No Current occupational status: disabled Hearing needs: No Assessment & Plan Assessment & Plan (1) Opioid use disorder, severe, in early remission: Code(s): F11.21 - Opioid dependence, in remission Category: Medical Plan The plan of care is to continue with buprenorphine-naloxone 8-2 mg TID and follow-up in 1 month or sooner if needed. Education reinforced re: risk reduction activities to minimize cannabis use. Orders: Orders AMB 14 Panel Urine Drug Screen Today Z51.81 - Encounter for therapeutic drug level monitoring Medications: Refilled buprenorphine-naloxone 8-2 mg (Suboxone) 1 film sublingual TID 90 ea 0RF 30 days Patient Instructions: - Continue with buprenorphine-naloxone as ordered. - Engage in risk reduction activities to minimize cannabis use. - Follow-up in 1 month or sooner if needed. - Call with questions, concerns, or to report side effects/new onset of symptoms to [facility]. - The patient verbalized understanding and agreed with plan of care.
[2025-06-18 10:16] VITALS: BP 138/80; PULSE 104; O2SAT 97
== END 2025-06-18 10:17 | disposition home or self-care (01) ==
LOC: HO.HCC 09:41
PROVIDERS: PCP Family Medicine; Visit Provider Clinical Nurse Specialist Psychiatric/Mental Health
DX: Z51.81 Encounter for therapeutic drug level monitoring (principal); F11.21 Opioid dependence, in remission
CPT/HCPCS: 99213

== ENCOUNTER → 2025-06-18 09:41 | Outpatient (BNVA) | payer MEDICARE, MEDICAID, SELFPAY | PROVIDERS: PCP Family Medicine; Visit Provider Clinical Nurse Specialist Psychiatric/Mental Health | DX: Z51.81 Encounter for therapeutic drug level monitoring (principal); F11.21 Opioid dependence, in remission | CPT/HCPCS: 80307; 99212 ==

== ENCOUNTER 2025-07-02 13:12 | Outpatient (AMB) | payer MEDICARE, MEDICAID, SELFPAY ==
--- NOTE | 2025-07-02 13:28 | A.OFFVIS_ITS ---
Intake Vital Signs 07/02/25 13:40 07/02/25 13:49 Height 5 ft 5 in Weight 163 lb 2 oz BMI 27.1 BP 152/102 H 146/100 H Blood Pressure Location Rt brachial Rt brachial Position Sitting Sitting Respiration 12 Pulse 84 Pulse Source Pulse Oximeter Temp 98.6 F Temp Source Oral Intake Visit Reasons: mawv Intake Note: Medical wellness visit Side Gluer Required: No Allergies No Known Allergies (No Known Allergies*) Allergy (Verified 07/02/25 14:28) Medication List - Last Reconciled 07/02/25 by Kari Machado, [facility]- buprenorphine-naloxone 8-2 mg (Suboxone) 1 film sublingual TID 30 days clonazepam (Klonopin) 0.5 mg PO DAILY naloxone 4 mg/actuation (Narcan) 1 spray intranasal Q2M HPI HPI Comments History of Present Illness Details Here today for AWV. The Medicare Annual Wellness Visit (AWV) is a yearly appointment with a health professional to identify health risks and help reduce them and to create or update a personalized prevention plan. During a Medicare AWV, health professionals should also review any current opioid prescriptions, detect any cognitive impairment, and establish or update medical and family history. 49 y/o M with HLD, MDD, obesity, PTSD, a goraphobia, opioid use disorder, current smoker SurgHx: Y FHx: Y SocHx: Y Health Maintenance: See scanned preventative medicine assessment with personalized health plan and screening schedule. Colon: Vaccines: tdap 2019, Flu AAA screen EKG: done today NSR with RBBB [place] of Care: As documented Visual Acuity: Hearing Screening: ACP: info mailed to him Dietary/Nutrition/Exercise Edu provided: During the course of the visit the patient was educated and counseled about appropriate screening and preventative services. Patient instructions were provided to the patient in written or electronic format. I have reviewed and verified the above information. Unfortunately he left after the intake was done. Chart was reviewed; orders had already been placed. Office to call and schedule a followup, BP noted to be high. EKG RBBB ACP docs mailed to him Smoking cessation edu provided [facility] Medical History Opioid use disorder, severe, in sustained remission, on maintenance therapy Other snf (current) drug therapy Surgical History Surgical procedure on lower extremity within past 6 months Family History Mother Mental confusion Other Seizures Social History Household Members: Family Housing: House Alcohol intake: former Patient Tobacco Use Status: Current everyday Tobacco user Cigarettes Per Day: 10 Years Smoked: 25 e-Cigarette/Vaping Use: Never Used service: No Current occupational status: disabled Hearing needs: No Questionnaire Medicare Wellness Checkup What gender do you identify with?: male During the past 4 weeks, how much have you been bothered by emotional problems such as feeling anxious, depressed, irritable, sad or downhearted, and blue?: quite a bit During the past 4 weeks, how much bodily pain have you generally had?: moderate pain During the past 4 weeks, was someone available to help you if you needed & wanted help?: yes, as much as I wanted During the past 4 weeks, what was the hardest physical activity you could do for at least 2 minutes?: light Can you get to places out of walking distance without help? (For eg., can you travel alone on buses, taxis or drive your car?): Yes Can you go shopping for groceries or clothes without someone's help?: Yes Can you prepare your own meals?: Yes Because of any health problems, do you need the help of another person with your personal care needs such as eating, bathing, dressing or getting around the house?: No Can you handle your own money without help?: Yes During the past 4 weeks, how would you rate your health in general?: good During the past 4 weeks how have things been going for you?: pretty bad Are you having difficulties driving your car?: no Do you always fasten your seat belt when you are in a car?: yes, usually During past 4 weeks, have you been bothered by the following: never: Falling or dizzy when standing up, Sexual problems?, Teeth or denture problems?, Problems using the telephone? and Tiredness or fatigue? and always: Trouble eating well? Have you fallen 2 or more times in the past year?: No Are you afraid of falling?: No Are you a smoker?: yes, but I'm not ready to quit During the past 4 weeks, how many drinks of wine, beer, or other alcoholic beverages did you have?: no alcohol at all (sober 10 years) Do you exercise for about 20 minutes 3 or more times a week?: no, I usually do not exercise this much Have you been given information to help with the following?: no: Hazards in your house that might hurt you? and no: Keeping track of your medications? How often do you have trouble taking medicines the way you have been told to take them?: I always take medicine as prescribed How confident are you that you can control & manage most of your health problems?: somewhat confident What is your race?: or origin or descent Activity of Daily Living Bathing - sponge bath, tub bath or shower: receives no assistance (gets in/out by self, if usual bathing means Toileting - going to the 'toilet room' for urine/bowel elimination & cleaning self/arranging clothes: goes to toilet room, cleans self, arranges clothes wit hout help Transfer: moves in & out of bed and chair without help (may use support object) Continence: controls urination/bowel movements completely by self Feeding: feeds self without help Total Score: 0 Information obtained from: patient Using telephone: independent Traveling: independent Shopping: independent Preparing meals: independent Housework: independent Taking medicine: independent Managing money: independent PHQ-9 Over the last 2 weeks, how often have you been bothered by any of the following problems? 1. Little interest or pleasure in doing things: nearly every day 2. Feeling down, depressed, or hopeless: nearly every day 3. Trouble falling or staying asleep, or sleeping too much: nearly every day 4. Feeling tired or having little energy: nearly every day 5. Poor appetite or overeating: nearly every day 6. Feeling bad about yourself - or that you are a failure or have let yourself or your family down: nearly every day 7. Trouble concentrating on things, such as reading the newspaper or watching television: nearly every day 8. Moving or speaking so slowly that other people could have noticed. Or the opposite - being so fidgety or restless that you have been moving around a lot more than usual: not at all 9. Thoughts that you would be better off or of hurting yourself in some way: not at all Total score: 21 Depression Screening Interpretation: Positive Depression Screening Follow-up: Existing condition and In treatment Depression Screening Done: Yes 05396 - PHQ-9 Billing: Yes Source: Developed by Drs. Jose Anaya, Evonne Abdul, Beltran Valencia and colleagues, with an educational albert from [employer]. Physical Exam Vital Signs: Last Vital Signs Temp 98.6 F 07/02/25 13:40 Pulse 84 07/02/25 13:40 Resp 12 07/02/25 13:40 BP 146/100 H 07/02/25 13:49 BMI result Body Mass Index 27.1 Office Procedures Vision Screening Right Eye: 20/50 Left Eye: 20/25 Bilateral: 20/25 03301 - Vision Screening EKG [id number], Complete Results AMB Hemoglobin A1c AMB Hemoglobin A1c 4.7 % Last Edit by Ashtyn Loyola CMA on 07/02/25 13:54 Results Reviewed Results Reviewed: Laboratory Last Values Hgb A1c (Clinic) 4.7 % (4.0-6.0) 07/02/25 13:50 Assessment & Plan Assessment & Plan (1) Encounter for subsequent annual wellness visit (AWV) in Medicare patient: Onset Date: ~07/02/25 Code(s): Z00.00 - Encounter for general adult medical examination without abnormal findings (2) Laboratory examination ordered as part of a routine general medical examination: Code(s): Z00.00 - Encounter for general adult medical examination without abnormal findings (3) Smoker: Comment: Smoking Cessation How to Quit There are a lot of ways to quit smoking and many resources to help you. Family members, friends, and co-workers may be supportive or encouraging, but to be successful the desire and commitment to quit must be your own. Most people who have been able to successfully quit smoking made at least one unsuccessful attempt in the past. Try not to view past attempts to quit as failures, but rather as learning experience s. Stopping smoking or using smokeless tobacco is difficult, but anyone can do it. Know the symptoms to expect when you stop. Common symptoms include: ? An intense craving for nicotine ? Anxiety, tension, restlessness, frustration, or impatience ? Difficulty concentrating ? Drowsiness or trouble sleeping, as well as bad dreams and nightmares ? Drowsiness and trouble sleeping ? Headaches ? Increased appetite and weight gain ? Irritability or depression How severe your symptoms are depends on how long you smoked and how many cigarettes you smoked each day. Feel ready to quit? ? First and foremost, set a quit date and quit completely on that day. Before your quit date, you may begin reducing your cigarette use. But remember, there is no safe level of cigarette smoking. ? List the reasons why you want to quit. Include both short- and long-term benefits. ? Identify the times you are most likely to smoke. For example, do you tend to smoke when feeling stressed or down? When out at night with friends? While drinking coffee or alcohol? When bored? While driving? Right after a meal or sex? During a work break? While watching TV or playing cards? When you are with other smokers? ? Let all of your friends, family, and co-workers know of your plan to stop smoking and your quit date. Just being aware that they know what you're going through can be helpful, especially when you are grumpy. ? Get rid of all your cigarettes just before the quit date, and clean out anything that smells like smoke, such as clothes and furniture. Make a plan about what you will do instead of smoking at those times when you are most likely to smoke. ? Be as specific as possible. For example, drink tea instead of coffee -- tea may not trigger the desire for a cigarette. Or, take a walk when you feel stressed. ? Remove ashtrays and cigarettes from the car. Place pretzels or hard candies there instead. Pretend-smoke with a straw. ? Find activities that focus your hands and mind but are not taxing or fatten ing. Computer games, solitaire, knitting, sewing, and crossword puzzles may help. ? If you normally smoke after eating, find other ways to end a meal. Play a tape or CD, eat a piece of fruit, get up and make a phone call, or take a walk (a good distraction that also jimenez calories). Make other changes in your lifestyle. ? Change your daily schedule and habits. Eat at different times or eat several small meals instead of three large ones. Sit in a different chair or even a different room. ? Satisfy your oral habits by eating celery or other low-calorie snack, chewing sugarless gum, or sucking on a cinnamon stick. ? Go to public places and restaurants where smoking is prohibited or restricted. ? Eat regular meals and don't eat too much candy or sweet things. ? Get more exercise. Take walks or ride a bike. Exercise helps relieve the urge to smoke. Set short-term quitting goals and reward yourself when you meet them. ? Every day, put the money you normally spend on cigarettes in a jar. Then buy something pleasurable after a period of time. ? Try not to think about all the days ahead you will need to avoid smoking. Take it one day at a time. ? Even one puff or one cigarette will make your desire for more cigarettes even stronger. However, it is normal to make mistakes. So even if you have one cigarette, you don't need to take the next one. Other tips to help you quit smoking and stick to it: ? Enroll in a smoking cessation program (hospitals, health departments, community centers, and work sites often offer programs). Learn about self-hypnosis or other techniques. ? Ask your health care provider about prescription medications that are safe and appropriate for you. ? Find out about nicotine patches, gum, and sprays. The [place] [employer]'s web site -- www.cancer.org -- is an excellent resource for smokers who are trying to quit, and the [employer] [place] [employer] can help some smokers kick the habit. Above all, don't get discouraged if you aren't able to quit smoking the first time. Nicotine addiction is a hard habit to break. Try something different next time. Develop new strategies, and try again. Many people take several attempts to finally kick the habit. Code(s): F17.200 - Nicotine dependence, unspecified, uncomplicated (4) Elevated blood pressure reading: Code(s): R03.0 - Elevated blood-pressure reading, without diagnosis of hypertension Plan . Orders: Orders HIV Ab/Ag Today Z00.00 - Encounter for general adult medical examination without abnormal findings, Z11.3 - Encounter for screening for infections with a predominantly sexual mode of transmission AMB Hemoglobin A1c Today Z00.00 - Encounter for general adult medical examination without abnormal findings Comprehensive Met. Panel Today Z00.00 - Encounter for general adult medical examination without abnormal findings, Z11.3 - Encounter for screening for infections with a predominantly sexual mode of transmission Lipid Panel Today Z00.00 - Encounter for general adult medical examination without abnormal findings, Z11.3 - Encounter for screening for infections with a predominantly sexual mode of transmission Prostate Specific Antigen Scr Today Z00.00 - Encounter for general adult medical examination without abnormal findings, Z11.3 - Encounter for screening for infections with a predominantly sexual mode of transmission Hepatitis A,B,C Profile Today Z00.00 - Encounter for general adult medical examination without abnormal findings, Z11.3 - Encounter for screening for infections with a predominantly sexual mode of transmission Microalbumin, Random (w Creat) Today Z00.00 - Encounter for general adult medical examination without abnormal findings, Z11.3 - Encounter for screening for infections with a predominantly sexual mode of transmission CT NG by PCR Urine Today Z00.00 - Encounter for general adult medical examination without abnormal findings, Z11.3 - Encounter for screening for infections with a predominantly sexual mode of transmission AMB Vision Screening Today Z00.00 - Encounter for general adult medical examination without abnormal findings Referrals Cologuard Test Z12.11 - Encounter for screening for malignant neoplasm of colon Patient Instructions: Health screenings for men You should visit your health care provider regularly, even if you feel healthy. The purpose of these visits is to: Screen for medical issues Assess your risk for future medical problems Encourage a healthy lifestyle Update vaccinations and other preventive care services Help you get to know your provider in case of an illness Information Even if you feel fine, you should still see your provider for regular checkups. These visits can help you avoid problems in the future. For example, the only way to find out if you have high blood pressure is to have it checked regularly. High blood sugar and high cholesterol level also may not have any symptoms in the early stages. Simple blood tests can check for these conditions. There are specific times when you should see your provider or receive specific health screenings. The [place] Preventive Services Task Force publishes a list of recommended screenings. Below are screening guidelines for men ages 40 to 64. BLOOD PRESSURE SCREENING Have your blood pressure checked at least once every year. Watch for blood pressure screenings in your area. Ask your provider if you can stop in to have your blood pressure checked. Ask your provider if you need your blood pressure checked more often if: You have diabetes, heart disease, kidney problems, or are overweight or have certain other health conditions You have a first-degree relative with high blood pressure You are Black Your blood pressure top number is from 120 to 129 mm Hg, or the bottom number is from 70 to 79 mm Hg If the top number is 130 mm Hg or greater or the bottom number is 80 mm Hg or greater, this is considered stage 1 hypertension. Schedule an appointment with your provider to learn how you can lower your blood pressure. Effects of age on blood pressure CHOLESTEROL SCREENING Cholesterol screening should begin at age 35 for men with no known risk factors for coronary heart disease. Repeat cholesterol screening should take place: Every 5 years for men with normal cholesterol levels More often if changes occur in lifestyle (including weight gain and diet) More often if you have diabetes, heart disease, kidney problems, or certain other conditions COLORECTAL CANCER SCREENING If you are under age 45, talk to your provider about getting screened. You may need to be screened if you have a strong family history of colon cancer or polyps. Screening may also be considered if you have risk factors such as a history of inflammatory bowel disease or polyps. If you are age 45 to 75, you should be screened for colorectal cancer. There are several screening tests available: A stool-based fecal occult blood (gFOBT) or fecal immunochemical test (FIT) every year A stool sDNA test every 1 to 3 years Flexible sigmoidoscopy every 5 years or every 10 years with stool testing FIT done every year CT colonography (virtual colonoscopy) every 5 years Colonoscopy every 10 years You may need a colonoscopy more often if you have risk factors for colorectal cancer, such as: Ulcerative colitis A personal or family history of colorectal cancer A history of growths in your colon called adenomatous polyps DENTAL EXAM Go to the dentist once or twice every year for an exam and cleaning. Your dentis t will evaluate if you have a need for more frequent visits. DIABETES SCREENING All adults who do not have risk factors for diabetes should be screened starting at age 35 and repeated every 3 years. If you have other risk factors for diabetes, such as a first degree relative with diabetes, overweight or obesity, high blood pressure, prediabetes, or a history of heart disease, you may be tested more often. If you are overweight and have other risk factors, such as high blood pressure and are planning to become , screening is recommended. EYE EXAM Have an eye exam every 2 to 4 years ages 40 to 54 and every 1 to 3 years ages 55 to 64. Your provider may recommend more frequent eye exams if you have vision problems or glaucoma risk. Have an eye exam that includes an examination of your retina (back of your eye) at least every year if you have diabetes. IMMUNIZATIONS Commonly needed vaccines include: Flu shot: get one every year COVID-19 vaccine: ask your provider what is best for you Tetanus-diphtheria and acellular pertussis (Tdap) vaccine: have as one of your tetanus-diphtheria vaccines if you did not receive it as an adolescent Tetanus-diphtheria: have a booster (or Tdap) every 10 years Varicella vaccine: receive 2 doses if you never had chickenpox or the varicella vaccine and were born in 1979 or after Hepatitis B vaccine: receive 2, 3, or 4 doses, depending on your exact circumstances, if you did not receive these as a child or adolescent, until age 59 Shingles (herpes zoster) vaccine: at or after age 50 Ask your provider if you should receive other immunizations, especially if you have certain medical conditions, such as diabetes or are at increased risk for some diseases such as pneumonia. INFECTIOUS DISEASE SCREENING Screening for hepatitis C: all adults ages 18 to 79 should get a one-time test for hepatitis C. Screening for human immunodeficiency virus (HIV): all people ages 15 to 65 should get a one-time test for HIV. Depending on your lifestyle and medical history, you may need to be screened for infections such as syphilis, chlamydia, and other infections. LUNG CANCER SCREENING You should have an annual screening for lung cancer with low-dose computed tomography (LDCT) if: You are age 50 to 80 years AND You have a 20 pack-year smoking history AND You currently smoke or have quit within the past 15 years OSTEOPOROSIS SCREENING If you are age 50 to 64 and have risk factors for osteoporosis, you should discuss screening with your provider. Risk factors can include long-term steroid use, low body weight, smoking, heavy alcohol use, having a fracture after age 50, or a family history of hip fracture or osteoporosis. Osteoporosis PHYSICAL EXAM All adults should visit their provider from time to time, even if they are healthy. The purpose of these visits is to: Screen for diseases Assess risk of future medical problems Encourage a healthy lifestyle Update vaccinations and other preventive care services Maintain a relationship with a provider in case of an illness Your height, weight, and body mass index (BMI) should be checked at every exam. During your exam, your provider may ask you about: Depression and anxiety Diet and exercise Alcohol and tobacco use Safety, such as use of seat belts and smoke detectors Your medicines and risk for interactions PROSTATE CANCER SCREENING If you're 55 through 69 years old, before having the test, talk to your provider about the pros and cons of having a PSA test. Ask about: Whether screening decreases your chance of dying from prostate cancer. Whether there is any harm from prostate cancer screening, such as side effects from testing or overtreatment of cancer when discovered. Whether you have a higher risk of prostate cancer than others. If you are age 55 or younger, screening is not generally recommended. You should talk with your provider about if you have a higher risk for prostate cancer. Risk factors include: Having a family history of prostate cancer (especially a brother or father) Being If you choose to be tested, the PSA blood test is repeated over time (yearly or less often), though the best frequency is not known. Prostate examinations are no longer routinely done on men with no symptoms. Prostate cancer SKIN EXAM Your provider may check your skin for signs of skin cancer, especially if you're at high risk. People at high risk include those who have had skin cancer before, have close relatives with skin cancer, or have a weakened immune system. TESTICULAR EXAM The [place] Preventive Services Task Force (USPSTF) now recommends against performing testicular self-exams. Doing testicular self-exams has been shown to have little to no benefit. Quality Reporting (2019) Adult ([facility] 138//) Smoking risk assessment performed?: Yes Patient Tobacco Use Status: Current everyday Tobacco user Tobacco cessation counseling provided: Yes Items discussed: Nicotine replacement, QuitWorks and Other Pharmacotherapy not ordered: No Depression screening performed: Yes Screen Results: Yes Positive screen Systolic BP not done?: No BMI screening not done: No Sexual Activity Screening ([facility] 153) Sexually active?: Yes Immunizations ([facility] 147, 117) Annual Influenza Vaccine: Yes Measles Antibody Test: No Mumps Antibody Test: No Rubella Antibody Test: No Varicella Antibody Test: No Anti Hepatitis A IgG Antigen test: No Anti Hepatitis B Virus Surface Ab test: No Fall Risk Screening ([facility] 139) Last assessed Fall Risk: 07/02/25 Fall risk assessment: No Falls in past year Depression/Bipolar (159/160/161/177) PHQ-9: Total score: 21 Ophthalmol:Cataracts Visual Acuity (133) Visual acuity exam performed: Yes Coding Level of Care Code Medicare Subsequent (G0439) Diagnoses Encounter for subsequent annual wellness visit (AWV) in Medicare patient Z00.00 Laboratory examination ordered as part of a routine general medical examination Z00.00 Smoker F17.200 Elevated blood pressure reading R03.0 CPT Codes Advance Care Planning - Time spent: 1-15 minutes, not on file ([id number]) Vision Screening - Vision Screenin - Vision Screening ([id number]) EKG - CPT: 25084-[id number], Complete ([id number]) Additional Codes PHQ-9 - 32979 - PHQ-9 Billing: Yes ([id number]) Advance Care Planning Who was present: info mailed to patient Forms completed: Health Care Proxy, MOLST and Living will Time spent: 1-15 minutes, not on file Actual minutes spent: 2
[2025-07-02 13:40] VITALS: BP 152/102; PULSE 84; RESP 12; TEMP 37; BMI 27.1
[2025-07-02 13:49] VITALS: BP 146/100
== END 2025-07-02 14:25 | disposition left against medical advice (07) ==
LOC: HO.HMCFM 13:13
PROVIDERS: PCP Family Medicine; Visit Provider Nurse Practitioner Family
DX: Z00.00 Encounter for general adult medical examination without abnormal findings (principal); R03.0 Elevated blood-pressure reading, without diagnosis of hypertension; F17.210 Nicotine dependence, cigarettes, uncomplicated

== ENCOUNTER → 2025-07-02 13:12 | Outpatient (BNVA) | payer MEDICARE, MEDICAID, SELFPAY | PROVIDERS: PCP Family Medicine; Visit Provider Nurse Practitioner Family | DX: Z00.01 Encounter for general adult medical examination with abnormal findings (principal); R03.0 Elevated blood-pressure reading, without diagnosis of hypertension; I45.10 Unspecified right bundle-branch block; F17.210 Nicotine dependence, cigarettes, uncomplicated; Z11.3 Encounter for screening for infections with a predominantly sexual mode of transmission; Z12.11 Encounter for screening for malignant neoplasm of colon; Z13.31 Encounter for screening for depression; Z13.1 Encounter for screening for diabetes mellitus | CPT/HCPCS: 83036; 93005; 96127; G0404 ==